=== PATIENT | female | born 1970 | race Caucasian/White ===

== ENCOUNTER → 2017-09-30 13:39 | Outpatient (CLI) | payer BC, SELFPAY ==
[2017-09-30 15:56] LABS: Thyroid Stimulating Hormone 0.73 uIU/ml (0.358-3.740)
[2017-10-01 12:16] LABS: Folate 11.2 ng/mL (>3.0); Prolactin 5.4 ng/mL (4.8-23.3); Vitamin B12 594 pg/mL (232-1245)
== END ==
PROVIDERS: PCP Emergency Medicine; Visit Provider Specialist
DX: D49.7 Neoplasm of unspecified behavior of endocrine glands and other parts of nervous system (principal); R20.9 Unspecified disturbances of skin sensation; R20.2 Paresthesia of skin
CPT/HCPCS: 36415; 82607; 82746; 84146; 84443

== ENCOUNTER → 2018-09-03 18:07 | Outpatient (CLI) | payer BC, SELFPAY ==
[2018-09-03 19:00] LABS: Amphetamine/Metha Screen,Urine Negative ng/mL (<1000); Barbiturates Screen,Urine Negative ng/mL (<200); Benzodiazepines Screen,Urine Positive ng/mL (<200); Cannabinoid Screen,Urine Negative ng/mL (<50); Cocaine Screen,Urine Negative ng/mL (<300); Methadone Screen,Urine Negative ng/mL (<300); Opiate Screen,Urine Positive ng/mL (<300); Phencyclidine Screen,Urine Negative ng/mL (<25)
== END ==
PROVIDERS: Visit Provider Nurse Practitioner Family
DX: Z79.899 Other long term (current) drug therapy (principal)
CPT/HCPCS: 80305

== ENCOUNTER 2018-10-13 11:00 | Outpatient (RCR) | payer BC, SELFPAY | END 2018-10-13 11:05 | disposition home or self-care (01) | LOC: PT 11:00 | PROVIDERS: Family Provider Emergency Medicine; PCP Emergency Medicine; Visit Provider Orthopaedic Surgery Adult Reconstructive Orthopaedic Surgery | DX: Z96.612 Presence of left artificial shoulder joint (principal) | CPT/HCPCS: 97010; 97014; 97016; 97033; 97035; 97110; 97140; 97163; 97164; G0283 ==

== ENCOUNTER → 2018-11-29 14:01 | Outpatient (CLI) | payer BC, SELFPAY ==
--- NOTE | 2018-11-29 14:19 | MR_ITS ---
MR shoulder LT wo con Ordering Physician: Mike Terrell Patient Age: 48 years: Female HISTORY: ITS.REASON: LEFT SHOULDER PAIN Surgery in June for labral tear still having pain clicking and shoulder weakness and pain with raising arm. Symptoms 2 months. TECHNIQUE: Multiplanar multisequence imaging on 1.5 [facility]. COMPARISON :No previous MR or plain films of the left shoulder available. FINDINGS Supraspinatus tendon: increased signal at critical zone reflects moderate supraspinatus tendinopathy. . Difficult to exclude a minor undersurface partial tear a towards anterior aspect of the supraspinatus. However I do not see any tendon retraction or definitive full-thickness tear.. Also Difficult to totally exclude tiny tiny pinhole tear here anteriorly technique with noting scant fluid at subdeltoid subacromial bursa..- The latter could also be seen with bursitis .. Subscapularis tendon is intact.. Infraspinatus tendon intact. Muscles of the rotator cuff well maintained well-developed. The biceps tendon appears intact up to the level of the superior aspect of bicipital groove, but but it is poorly seen as it it courses over the humeral head. .. Glenoid labrum question & Suspect we may be viewing some postsurgical changes at the superior anterior labrum accounting for subtle irregularities in this region. (As suggested on coronal image 11, axial 9) Also note linear fluid appearing which appears to undercutting superior anterior labrum coronal image 12. . Although fibrocartilage signal can occur here this area is particularly bright on STIR image set suggesting fluid/edema rather than merely fibrocartilage . Comparison to prior studies be very helpful to evaluate for interval change or character of the labrum... Details of prior procedure would be helpful to correlate as well. More inferiorly the the anterior labrum has a slightly blunted appearance. Is also slight additional painting appearing appearance of tissue questioned overlying the anterior/inferior labrum..-axial image 15, 16. Nonspecific. The glenohumeral joint relationships otherwise appears satisfactory with upper normal fluid at the shoulder joint. AC joint. Increased fluid & signal at the AC joint, with mild-AC joint arthropathy. Acromion. Neutral acromion with Adequate subacromial space measuring roughly 8mm.. -------IMPRESSION 1. Supraspinatus Tendinopathy. ... Increased signal critical zone supraspinatus tendon.,. This increased signal most evident towards its anterior margin, where suspect small undersurface tear .... No tendon retraction nor definitive full-thickness supraspinatus tear.... However suggestion scant, barely evident trace fluid at the subdeltoid subacromial bursa noted.-Barely evident but could reflect a small tiny pinhole Tear here anterior supraspinatus tendon, vs a mild bursitis. 2.. Subtle signal irregularities at the anterior superior labrum may reflect postsurgical changes. Minimal signal/fluid signal signal undercutting superior labrum noted.. Findings require clinical correlation. Comparison to prior studies May be helpful. Note comments in text. 3. Biceps tendon is poorly seen, & poorly delineated as it crosses over the humeral head . clinical correlation required here. 4. Minimal Fluid at AC joint likely reflecting mild AC joint arthropathy
== END ==
PROVIDERS: PCP Emergency Medicine; Visit Provider Orthopaedic Surgery Adult Reconstructive Orthopaedic Surgery
DX: M25.512 Pain in left shoulder (principal)
CPT/HCPCS: 73221

== ENCOUNTER → 2019-08-16 08:54 | Outpatient (CLI) | payer BC, SELFPAY ==
--- NOTE | 2019-08-16 08:58 | FL_ITS ---
PROCEDURE: FL BARIUM ENEMA CLINICAL INDICATION: 3 mo fu Tortuous colon, history of polyps COMPARISON: No exams were available for comparison FINDINGS: Fluoroscopy time: 2 minutes and 55 seconds. 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 The colon is visualized from rectum to cecum including filling of the appendix. There is a mild amount of residual secretions or fecal material within the cecum. It was difficult to get cecum adequately distended due to patient's discomfort. No obvious lesions evident within the cecum. No annular constricting lesion or fixed polypoid filling defects or evident. IMPRESSION: There was a mild amount of residual secretions or feces within the cecum which precludes a diagnosis of small polyps otherwise negative air-contrast barium Dictated by: Tahir Kearney MD 08/19/2019 14:18 Electronically signed by Tahir Kearney MD in [place] 08/19/2019 14:18
== END ==
PROVIDERS: PCP Emergency Medicine; Visit Provider Surgery
DX: Q43.8 Other specified congenital malformations of intestine (principal)
CPT/HCPCS: 74270

== ENCOUNTER → 2019-09-09 15:45 | Outpatient (CLI) | payer BC, SELFPAY ==
--- NOTE | 2019-09-09 15:45 | MM_ITS ---
PROCEDURE: MM DIG SCREENING MAMM BI W/CAD CLINICAL INDICATION: screening There is a history of breast cancer patient's paternal grandmother. COMPARISON: DMSB DIG MAMM-SCREEN BRANDON from 08/30/2015 DMDXUWAL DIG MAMM-DX UNI LT W ADD VIEW from 01/02/2016 TECHNIQUE: Standard CC and MLO images were obtained. R2 CAD reviewed. FINDINGS: Scattered fibroglandular densities are seen throughout each breast. There is a mole marker left breast. There are couple of benign-appearing microcalcifications in each breast. There is a small nodular density just deep to the nipple right breast 12 o'clock position. There is a similar nodular density deep to the nipple left breast approximately 3 o'clock position. Neither of these densities were definitely seen on the previous mammograms. There are no suspicious microcalcifications. Recommend the patient return for spot compression imaging of both lesions, ultrasound may be necessary as well IMPRESSION: Fibrofatty parenchyma with possible new densities in each breast BI-RAD Category: 0 Need Additional Imaging Evaluation FOLLOW-UP: IMM Immediate Follow-up Recommended (A letter has been sent to the patient regarding results of the study.) Dictated by: Dr. Umberto Zuluaga MD 09/14/2019 14:[address] Umberto Zuluaga MD in [place] 09/14/2019 14:33
== END ==
PROVIDERS: PCP Emergency Medicine; Visit Provider Emergency Medicine
DX: Z12.39 Encounter for other screening for malignant neoplasm of breast (principal)
CPT/HCPCS: 77067

== ENCOUNTER → 2019-10-21 10:47 | Outpatient (CLI) | payer BC, SELFPAY ==
--- NOTE | 2019-10-21 13:05 | US_ITS ---
PROCEDURE: US BREAST LT COMPLETE CLINICAL INDICATION: breast nodule bilat COMPARISON: US BREAST RT COMPLETE from 10/21/2019 FINDINGS: There is a small hypoechoic nodule with well-defined borders 2 o'clock position outer breast measuring 0.8 x 0.4 by 0.9 cm and this likely represents a small fibroadenoma. There is a similar hypoechoic slightly lobulated lesion 12 o'clock position near the nipple measuring 0.8 by 0.6 x 0.4 cm in this likely represents a fibroadenoma as well. There are normal appearing nodes in the axilla. IMPRESSION: Probable small fibroadenomas as described with no additional evaluation indicated and recommended patient continue yearly screening mammography Dictated by: Dr. Umberto Zuluaga MD 10/28/2019 09:[address] Umberto Zuluaga MD in [place] 10/28/2019 09:43
--- NOTE | 2019-10-21 13:05 | US_ITS ---
PROCEDURE: US BREAST RT COMPLETE CLINICAL INDICATION: breast nodule bilat COMPARISON: BL US BREAST-LT COMPLETE W/AXILLA from 01/02/2016 FINDINGS: There are 2 hypoechoic cystic lesions 6 o'clock position near the largest measuring 0.5 by 0.5 x 0.4 cm. The other cystic-appearing lesion measures 0.5 by 0.4 x 0.2 cm. There are 2 normal appearing nodes in the axilla.. IMPRESSION: Small cystic-appearing lesions as described, recommend the patient continue with yearly screening mammography Dictated by: Dr. Umberto Zuluaga MD 10/28/2019 09:[address] Umberto Zuluaga MD in [place] 10/28/2019 09:46
--- NOTE | 2019-10-21 13:05 | MM_ITS ---
PROCEDURE: MM DIG MAMM BI DX W/CAD CLINICAL INDICATION: breast nodule bilat COMPARISON: DMSB DIG MAMM-SCREEN BRANDON from 08/30/2015 DMDXUWAL DIG MAMM-DX UNI LT W ADD VIEW from 01/02/2016 MM DIG SCREENING MAMM BI W/CAD from 09/09/2019 US BREAST RT COMPLETE from 10/21/2019 US BREAST LT COMPLETE from 10/21/2019 TECHNIQUE: Standard CC and MLO images and 3D Tomosynthesis was obtained. R2 CAD reviewed. FINDINGS: Scattered fibroglandular densities are seen in both breast. Keily images are most helpful and there is no suspicious lesions seen in the subareolar region of either breast. Ultrasound of each breast showed small cystic lesions in the subareolar region of each breast with no suspicious characteristics. There are no suspicious microcalcifications. IMPRESSION: Additional views of each breast with keily images confirming no suspicious abnormality in either breast BI-RAD Category: 1 Negative FOLLOW-UP: 1YR 1 Year Follow-up (A letter has been sent to the patient regarding results of the study.) Dictated by: Dr. Umberto Zuluaga MD 10/28/2019 09:[address] Umberto Zuluaga MD in [place] 10/28/2019 09:40
== END ==
PROVIDERS: PCP Emergency Medicine; Visit Provider Physician Assistant
DX: N63.23 Unspecified lump in the left breast, lower outer quadrant (principal)
CPT/HCPCS: 76641; 77062; 77066; G0279

== ENCOUNTER 2019-12-26 14:09 | Emergency (ER) | payer OTHER, BC, SELFPAY ==
[2019-12-26 14:15] VITALS: BP 163/103; PULSE 86; RESP 18; TEMP 36.8; O2SAT 100; BMI 29.0
--- NOTE | 2019-12-26 14:21 | XR_ITS ---
PROCEDURE: XR CHEST PORTABLE CLINICAL HISTORY: cough/respiratory symptoms COMPARISON: CXR2V XR chest 2V from 03/29/2018 [id number] XR ribs LT min 3V w CXR1V from 03/29/2018 FINDINGS: The cardiomediastinal silhouette and pulmonary vascularity are within normal limits. The lungs are clear without infiltrates, suspicious nodules, or pleural effusions. Mild lower thoracic curvature convex right and lumbar curvature convex left IMPRESSION: No acute findings. Dictated by: Tahir Kearney MD 12/26/2019 14:37 Electronically signed by Tahir Kearney MD in [place] 12/26/2019 14:37
--- NOTE | 2019-12-26 14:28 | HMH.COUGH ---
Cough Clinic HPI - History of Present Illness Complaint:: 49-year-old white female who over the past week has had scratchy throat, dry cough and fevers to 102 degrees. She is had some body aches and has felt wiped out. Some indirect contacts at work have been under self quarantine for coronavirus exposure but she is not been around anyone who is actually been diagnosed with the disease. 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 She reports that her cough is mostly dry, throat is scratchy but not significantly painful. Has noticed a small swelling in her right upper chest wall area but no cervical lymphadenitis. No GI symptoms. Mild ear pain. Has overall muscle aches but no specific single joints hurt. Onset (ago): day(s) Severity: severe Severity scale (1-10): 5 Home Medications: Home Medications Medication Instructions Recorded Confirmed Type acetaminophen 300 mg-codeine 30 mg 1 tab PO TID #90 tab 10/14/19 Rx tablet diazepam 5 mg tablet 5 mg PO DAILY PRN #30 tab 10/14/19 Rx Esomeprazole Magnesium [Nexium 40 mg PO DAILY 12/26/19 History 24HR] lisinopriL [Prinivil 10mg Tablet] See Rx Instructions .ROUTE .COMPLEX 12/26/19 History Allergies/Adverse Reactions: Allergies Allergy/AdvReac Type Severity Reaction Status Date / Time No Known Allergies Allergy Verified 12/26/19 14:13 Cough Clinic Triage - Symptoms Fever History: Yes Chills: Yes Myalgia: Yes Nasal Drainage: No Sore Throat: Yes Productive Cough: No Non-productive Cough: Yes Ear or Sinus Pain: Yes Joint Pain: Yes Chest Pain: Yes Rash: Yes (l abd/r shoulder) Shortness of Breath: No Nausea or Vomitting: No Headache: Yes Abdominal Pain: No Diarrhea: No - Exposure History Foreign Travel: No Direct Contact with COVID-19 Patient: No - Risk Factors Greater than 60 Years Old: No COPD: No Diabetes: No Heart Disease: Yes (htn) Home Oxygen Use: No Chronic Renal Disease: No Chronic Liver Disease: No Neurologic/Neurodevelopmental/intellectual disability: No Other Chronic Diseases: No If Female, currently : No Current Smoker: Yes (1 ppd) Former Smoker: No Cough Clinic History I have reviewed the patient's past medical history: Yes Medical History: Reports:: Anxiety, Gastroesophageal Reflux Disease(GERD), Hypertension, MRSA Denies:: Cancer, Diabetes Mellitus Type 1, Diabetes Mellitus Type 2, Internal Pacemaker, Lung Disease, Seizures Other Medical History: Reports: Arthritis Comment: obesity Laterality Cases: Left: Arthroscopy Shoulder, Right: Arthroscopy Knee, Bilateral: Tonsillectomy Other Surgeries: Yes: Colonoscopy, EGD, Hernia Repair, Hysterectomy-Partial, Tubal Ligation. No: Pacemaker Amputation: No Fractures: No Comment: excision lesions, rt knee sx, wisdom teeth - Social History Smoking Status: Current every day smoker Tobacco Type: cigarettes # Packs/Day (cigarettes): 1 #Yrs smoked (if former smoker): 26 Alcohol Intake: never Alcohol Intake Frequency:: holidays/special occasions only Substance Use Type: denies use Occupational Status: previously employed Housing: house Household Members: spouse - Psychiatric History Pschychiatric History:: Reports:: Anxiety Family Hx:: No significant family history ROS Obtained: Yes All systems reviewed & no additional complaints Cough Clinic Exam - General General appearance: alert, in no apparent distress - Head Head exam: atraumatic, normocephalic, normal inspection - Eye Eye exam: Present: normal appearance, PERRL, EOMI - ENT ENT exam: Present: normal exam, normal oropharynx, mucous membranes moist, TM's normal bilaterally, normal external ear exam - Neck Neck exam: Present: normal inspection, full ROM, trachea midline. Absent: meningismus, lymphadenopathy - Chest Chest inspection: Present: normal inspection, symmetric chest wall rise. Absent: tenderness - Respiratory Respira
[2019-12-26 14:36] LABS: Hematocrit 41.7 % (37.0-47.0); Hemoglobin 14.9 g/dL (12.2-16.2); Mean Corpuscular HGB Conc 35.7 g/dL (31.8-35.4); Mean Corpuscular Volume 92.5 fl (81-99); Platelet Count 445 K/mm3 (142-424); Red Blood Count 4.51 M/mm3 (4.20-5.40); Red Cell Distribution Width 13.3 % (11.5-17.5)
[2019-12-26 14:37] LABS: Mean Platelet Volume 7.4 fl (7.4-10.4)
[2019-12-26 14:38] LABS: Basophils # 0.1 K/mm3 (0-0.2); Basophils % 0.9 % (0.1-2.0); Eosinophils # 0.1 K/mm3 (0.0-0.4); Eosinophils % 0.9 % (0.1-12.0); Lymphocytes # 3.3 K/mm3 (0.7-4.5); Lymphocytes % 32.6 % (10-50); Monocytes # 0.6 K/mm3 (0.1-1.0); Neutrophils % 59.6 % (37.0-80.0)
[2019-12-26 14:53] LABS: Adenovirus,PCR Not Detected (NotDetected); Bordetella Pertussis Not Detected (NotDetected); Chlamydophila Pneumoniae, PCR Not Detected (NotDetected); Coronavirus 229E Not Detected (NotDetected); Coronavirus NL63 Not Detected (NotDetected); Coronavirus OC43 Not Detected (NotDetected); Coronovirus HKU1,PCR Not Detected (NotDetected); Human Metapneumovirus Not Detected (NotDetected); Influenza A, PCR Not Detected (NotDetected); Influenza AH1, 2009 Not Detected (NotDetected); Influenza AH1, PCR Not Detected (NotDetected); Influenza AH3,PCR Not Detected (NotDetected); Influenza B, PCR Not Detected (NotDetected); Mycoplasma Pneumoniae, PCR Not Detected (NotDetected); Parainfluenza 1, PCR Not Detected (NotDetected); Parainfluenza 2, PCR Not Detected (NotDetected); Parainfluenza 3, PCR Not Detected (NotDetected); Parainfluenza 4, PCR Not Detected (NotDetected); Respiratory Syncytial Virus Not Detected (NotDetected); Rhinovirus/Enterovirus Not Detected (NotDetected)
[2019-12-26 15:05] VITALS: BP 163/103; PULSE 86; RESP 18; TEMP 36.8; O2SAT 100
[2019-12-27 09:04] LABS: Covid-19 Nasal PCR Sendout Lex NOT DETECTED
--- NOTE | 2019-12-27 09:19 | PC.NURSE ---
NOTIFED DR. HUERTA OF NEGATIVE COVID TEST. NOTIFIED PATIENT OF NEGATIVE COVID TESTING. WILL FAX RESULTS TO [facility].
== END 2019-12-26 14:55 | disposition home or self-care (01) ==
PROVIDERS: Emergency Provider Internal Medicine Adolescent Medicine; PCP Emergency Medicine
DX: J06.9 Acute upper respiratory infection, unspecified (principal); R21 Rash and other nonspecific skin eruption; F41.9 Anxiety disorder, unspecified; K21.9 Gastro-esophageal reflux disease without esophagitis; I10 Essential (primary) hypertension; F17.210 Nicotine dependence, cigarettes, uncomplicated
CPT/HCPCS: 36415; 71045; 85025; 87275; 87276; 87486; 87581; 87633; 87798; 99201; 99213

== ENCOUNTER 2020-04-09 13:34 | Emergency (ER) | payer OTHER, BC, SELFPAY ==
[2020-04-09 13:54] VITALS: BP 132/81; PULSE 91; RESP 20; TEMP 37.3; O2SAT 98; BMI 28.1
[2020-04-09 14:07] VITALS: BP 132/81; PULSE 91; RESP 20; TEMP 37.3; O2SAT 98
--- NOTE | 2020-04-09 14:16 | HMH.EDUTC ---
[facility] [place] Disposition Clinical Impression: Upper respiratory infection, viral, COVID-19 virus test result unknown Disposition: Home, Self-Care Condition on Discharge: Good Instructions: DI for Viral Upper Respiratory Infection -- Adult Additional Instructions: Laboratory like I do not understand all the no sign of a bacterial infection. Likely viral. Viruses can take 7-14 days to run their course. Nasal saline and bulb syringe or nose [place] to remove nasal drainage to help with nasal congestion. Hard to eat, drink, sleep with nasal congestion so important to keep this cleaned out. Monitor temp. Tylenol or Motrin as needed for pain or fever Encourage fluids, water, Gatorade, Powerade, Pedialyte if infant/toddler/child Warm salt water gargles Warm fluids Sore throat lozenges Sleep elevated Humidifier/vaporizer Your throat swab was sent for culture. These results are typically sent to the primary care. Be sure you follow-up in 2-3 days if no improvement so we can review the results and treat if necessary if you do not have a primary care, I recommend to get 1 but in the meantime, call for results. Follow-up immediately for new or worsening symptoms or no noticeable improvement over the next 48-72 hours. self isolate until test results are back. no work until test results are neg Referrals: Jose Wells MD [Primary Care Provider] - Forms: Work/School Release Time of Disposition: 14:28 Medical Decision Making - Tristan Inquiry Pt receiving controlled substance: No Vital Signs: 04/09/20 13:54 04/09/20 14:07 Temperature 99.2 F 99.2 F Temperature Source Oral Oral Pulse Rate 91 H Pulse Rate [Left] 91 H Respiratory Rate 20 20 Blood Pressure 132/81 Blood Pressure [Right Arm] 132/81 Blood Pressure Mean [Right Arm] 98 Blood Pressure Source [Right Arm] Automatic Cuff Blood Pressure Position [Right Arm] Sitting 02 Sat by Pulse Oximetry 98 Oxygen Delivery Method Room Air Room Air Orders (Tests/Meds): ORDERS Category Date Time Status SARS-CoV-2, JAYLYN Stat Lab 04/09/20 14:02 Ordered [facility] [place] HPI - General Chief complaint: Urgent Treatment Center Stated complaint: fever tired sore throat cough Time Seen by Provider: 04/09/20 14:16 Mode of Arrival: Ambulatory Source of Information: Patient Limitations: No Limitations Description of Symptoms (Recalled from Triage Doc. by RN): Itchy throat, cough, fatigue, high fever HEENT Symptoms (Recalled from RN notes): Yes Resp Symptoms (Recalled from RN notes): Yes Skin Symptoms (Recalled from RN notes): No MS Symptoms (Recalled from RN notes): Yes Functional Status (Recalled from RN notes): stable - History of Present Illness Provider Complaint: 49-year-old female presents for sore throat, fever, body aches, clear nasal drainage, coughing, and increased in feeling short of breath. 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 Patient states other employees do not wear mask. - Related Data Home Medications Medication Instructions Recorded Confirmed Esomeprazole Magnesium [Nexium 40 mg PO DAILY 12/26/19 12/29/19 24HR] Previous Rx's Medication Instructions Recorded selenium sulfide 2.25 % shampoo 1 applic TOPICAL DAILY 7 Days #180 12/29/19 ml lisinopril 10 mg tablet See Rx Instructions .ROUTE 01/11/20 .COMPLEX #90 tab acetaminophen 300 mg-codeine 30 mg 1 tab PO TID #75 tab 04/06/20 tablet diazepam 5 mg tablet 5 mg PO DAILY PRN #25 tab 04/06/20 Allergies Allergy/AdvReac Type Severity Reaction Status Date / Time No Known Allergies Allergy Verified 04/09/20 14:03 - Worker's Comp Is this a Worker's Comp case?: No Is this an [facility] Worker's Comp?: No Is this a Mega Worker's Comp?: No [facility] History - Hepatitis A Screen Drug use history?: No High risk sexual behaviors?: No History of sexually transmitted in
[2020-04-09 19:14] LABS: UTC Influenza A Antigen Negative (Negative)
[2020-04-09 19:14] LABS: UTC Strep Screen (Rapid) Negative (Negative)
[2020-04-09 19:16] LABS: UTC Influenza B Antigen Negative (Negative)
[2020-04-11 15:51] LABS: Covid-19 Nasal PCR Sendout Lex Not Detected
== END 2020-04-09 14:41 | disposition home or self-care (01) ==
PROVIDERS: Emergency Provider Nurse Practitioner Family; PCP Emergency Medicine
DX: J06.9 Acute upper respiratory infection, unspecified (principal); Z03.818 Encounter for observation for suspected exposure to other biological agents ruled out; I10 Essential (primary) hypertension; F41.9 Anxiety disorder, unspecified; K21.9 Gastro-esophageal reflux disease without esophagitis; F17.210 Nicotine dependence, cigarettes, uncomplicated
CPT/HCPCS: 87804; 87880; 99201; 99202; U0004

== ENCOUNTER → 2020-06-07 15:41 | Outpatient (CLI) | payer OTHER, BC, SELFPAY ==
[2020-06-07 16:09] LABS: Basophils # 0.1 K/mm3 (0-0.2); Eosinophils # 0.2 K/mm3 (0.0-0.4); Eosinophils % 2.4 % (0.1-12.0); Hematocrit 44.7 % (37.0-47.0); Hemoglobin 14.3 g/dL (12.2-16.2); Lymphocytes # 2.3 K/mm3 (0.7-4.5); Lymphocytes % 27.5 % (10-50); Mean Corpuscular HGB Conc 31.9 g/dL (31.8-35.4); Mean Corpuscular Hemoglobin 30.3 pg (27.0-31.2); Mean Corpuscular Volume 94.9 fl (81-99); Mean Platelet Volume 8.7 fl (7.4-10.4); Monocytes # 0.5 K/mm3 (0.1-1.0); Monocytes % 5.8 % (1.7-9.3); Neutrophils # 5.3 K/mm3 (1.8-7.8); Neutrophils % 63.3 % (37.0-80.0); Platelet Count 380 K/mm3 (142-424); Red Blood Count 4.71 M/mm3 (4.20-5.40); White Blood Count 8.4 K/mm3 (4.8-10.8)
[2020-06-07 16:51] LABS: Chloride 105 mmol/L (98-107); Potassium 5.4 mmoL/L (3.5-5.1); Sodium 140 mmol/L (136-145)
[2020-06-07 16:53] LABS: Blood Urea Nitrogen 13 mg/dl (7-17); Estimated Glomerular Filt Rate 67 ml/min (>60); GFR (African American) 81 ML/MIN (>60)
[2020-06-07 16:54] LABS: Alanine Aminotransferase 29 U/L (12-78); Albumin Level 4.5 g/dl (3.5-5.0); Albumin/Globulin Ratio 1.6 (1.1-1.8); Alkaline Phosphatase 67 U/L (38-126); Anion Gap 14.4 mEq/L (5-15); Aspartate Amino Transferase 37 U/L (14-36); Bilirubin,Total 0.6 mg/dl (0.2-1.3); Calcium 10.6 mg/dl (8.4-10.2); Carbon Dioxide 26 mmol/L (22.0-30.0); Cholesterol 205 mg/dl (140-200); Globulin 2.9 g/dL (1.3-3.2); Glucose 114 mg/dl (74-100); HDL Cholesterol 51 mg/dl (40-60); Total Protein,Serum 7.4 g/dl (6.3-8.2); Triglycerides 150 mg/dl (30-150); VLDL Cholesterol 30 mg/dL (0-40)
[2020-06-07 17:12] LABS: Direct LDL Cholesterol 140.56 mg/dL (100-129)
[2020-06-07 17:18] LABS: T4 (Thyroxine) 7.2 ug/dl (5.53-11.0)
[2020-06-07 17:29] LABS: Thyroid Stimulating Hormone 0.65 uIU/mL (0.465-4.68)
== END ==
PROVIDERS: Visit Provider Physician Assistant
DX: I10 Essential (primary) hypertension (principal); Z79.899 Other long term (current) drug therapy
CPT/HCPCS: 80053; 80061; 84436; 84443; 85025

== ENCOUNTER → 2020-06-19 15:55 | Outpatient (CLI) | payer OTHER, BC, SELFPAY ==
[2020-06-19 19:04] LABS: Chloride 103 mmol/L (98-107); Potassium 4.4 mmoL/L (3.5-5.1); Sodium 139 mmol/L (136-145)
[2020-06-19 19:07] LABS: Anion Gap 11.4 mEq/L (5-15); Blood Urea Nitrogen 9 mg/dl (7-17); Carbon Dioxide 29 mmol/L (22.0-30.0); Estimated Glomerular Filt Rate 67 ml/min (>60); GFR (African American) 81 ML/MIN (>60); Glucose 87 mg/dl (74-100)
== END ==
PROVIDERS: Visit Provider Physician Assistant
DX: E87.5 Hyperkalemia (principal)
CPT/HCPCS: 36415; 80048

== ENCOUNTER 2020-10-09 19:27 | Emergency (ER) | payer OTHER, BC, SELFPAY ==
[2020-10-09 19:40] VITALS: BP 135/83; PULSE 83; RESP 14; TEMP 36.9; O2SAT 99; BMI 28.1
--- NOTE | 2020-10-09 20:27 | HMH.EDUTC ---
[facility] [place] Disposition Clinical Impression: Viral syndrome, Exposure to COVID-19 virus Disposition: Home, Self-Care Condition on Discharge: Good Instructions: DI for COVID-19 (Suspected or Confirmed ), Preventing the Spread of Coronavirus Discharge Instructions Additional Instructions: Drink plenty of fluids. Take tylenol or ibuprofen for pain or fever. Take the medications as directed. Follow up with your regular doctor. GO TO THE ER FOR ANY WORSENING SYMPTOMS Prescriptions: Ondansetron [Zofran 4mg ODT] 4 mg PO Q8HP PRN #12 tab.rapdis PRN Reason: Nausea Transmission Status: Received by [id number] Azithromycin [Z-Gwyn 250mg Tab*] 250 mg PO UD DOSE PK #6 tab Transmission Status: Received by [id number] Referrals: Jose Wells MD [Primary Care Provider] - Time of Disposition: 20:30 Medical Decision Making - Medical Records Medical records reviewed: No: I reviewed the patient's medical records. - Tristan Inquiry Pt receiving controlled substance: No Vital Signs: 10/09/20 19:40 10/09/20 20:38 Temperature 98.5 F 98.5 F Temperature Source Oral Pulse Rate 83 Pulse Rate [Right Brachial] 83 Respiratory Rate 14 14 Blood Pressure 135/83 Blood Pressure [Right Arm] 135/83 Blood Pressure Mean [Right Arm] 100 Blood Pressure Source [Right Arm] Automatic Cuff Blood Pressure Position [Right Arm] Sitting 02 Sat by Pulse Oximetry 99 Oxygen Delivery Method Room Air Orders (Tests/Meds): ORDERS Category Date Time Status Covid-19 Nasal PCR Sendout P&C Routine Lab 10/09/20 19:45 Received [facility] [place] HPI - General Stated complaint: COVID TEST Time Seen by Provider: 10/09/20 20:28 Mode of Arrival: Ambulatory Source of Information: Patient Limitations: No Limitations Description of Symptoms (Recalled from Triage Doc. by RN): COVID TEST D/T EXPOSURE. C/O HEADACHE AND SORE THROAT HEENT Symptoms (Recalled from RN notes): Yes Resp Symptoms (Recalled from RN notes): No Skin Symptoms (Recalled from RN notes): No MS Symptoms (Recalled from RN notes): No Functional Status (Recalled from RN notes): WNL - History of Present Illness Provider Complaint: She is here requesting a covid-19 test. - Related Data Home Medications Medication Instructions Recorded Confirmed Esomeprazole Magnesium [Nexium 40 mg PO DAILY 12/26/19 09/24/20 24HR] Previous Rx's Medication Instructions Recorded acetaminophen 300 mg-codeine 30 mg 1 tab PO QID #120 tab 07/25/20 tablet cyclobenzaprine 10 mg tablet 10 mg PO TID PRN #30 tab 07/25/20 diazepam 5 mg tablet 5 mg PO DAILY PRN #30 tab 07/25/20 lisinopril 10 mg tablet See Rx Instructions .ROUTE 08/20/20 .COMPLEX #90 tab phentermine 37.5 mg capsule 37.5 mg PO DAILY #30 cap 08/20/20 Azithromycin [Z-Gwyn 250mg Tab*] 250 mg PO UD DOSE PK #6 tab 10/09/20 Ondansetron [Zofran 4mg ODT] 4 mg PO Q8HP PRN #12 tab.rapdis 10/09/20 Allergies Allergy/AdvReac Type Severity Reaction Status Date / Time No Known Allergies Allergy Verified 09/24/20 16:01 - Worker's Comp Is this a Worker's Comp case?: No [facility] History - Hepatitis A Screen Drug use history?: No High risk sexual behaviors?: No History of sexually transmitted infection?: No Currently employed?: No Childcare worker?: No Do you have indoor plumbing?: Yes Do you have electricity?: Yes Attestation statement:: This patient has been screened for Hepatitis A risk factors. I have reviewed the patient's past medical history: Yes Medical History: Reports:: Anxiety, Gastroesophageal Reflux Disease(GERD), Hypertension Denies:: Cancer, Diabetes Mellitus Type 1, Diabetes Mellitus Type 2, Internal Pacemaker, Lung Disease, MRSA, Seizures Other Medical History: Reports: Arthritis Comment: obesity Laterality Cases: Left: Arthroscopy Shoulder, Right: Arthroscopy Knee, Bilateral: Tonsillectomy Other Surgeries: Yes: Colonoscopy, EGD, Hernia Repair, Hysterectomy-Partial, Tubal Ligation
[2020-10-09 20:38] VITALS: BP 135/83; PULSE 83; RESP 14; TEMP 36.9; O2SAT 99
[2020-10-11 08:17] LABS: Covid-19 Nasal PCR Sendout P&C Negative
== END 2020-10-09 20:40 | disposition home or self-care (01) ==
PROVIDERS: Emergency Provider Nurse Practitioner Family; PCP Emergency Medicine
DX: Z20.822 Contact with and (suspected) exposure to COVID-19 (principal); B34.9 Viral infection, unspecified; K21.9 Gastro-esophageal reflux disease without esophagitis; F41.9 Anxiety disorder, unspecified; I10 Essential (primary) hypertension; Z79.899 Other long term (current) drug therapy
CPT/HCPCS: 99202; G0463; U0004

== ENCOUNTER → 2020-11-09 10:16 | Outpatient (CLI) | payer OTHER, BC, SELFPAY ==
--- NOTE | 2020-11-09 10:24 | MR_ITS ---
PROCEDURE: MR LUMBAR SPINE WO CON CLINICAL INDICATION: back pain Chronic low back pain COMPARISON: CT LSWO CT LUMBAR SPINE W/O CONTRAST from 08/30/2015 TECHNIQUE: Standard multiplanar multiecho sequences are performed without contrast. 3-D MIP and myelographic images are also rendered and reviewed FINDINGS: There is normal alignment. The spinal cord ends at the L1 level. L1-L2: Unremarkable. L2-L3: Unremarkable. L3-L4: Minimal bulging disc with mild facet and ligamentum hypertrophy L4-5: Minimal anterolisthesis of L4 of 2-3 mm. Mild facet ligamentum hypertrophy with mild bilateral lateral recess and foraminal narrowing. L5-S1: Degenerative disc disease with facet and ligamentum hypertrophy. There is mild bilateral foraminal narrowing which is slightly greater on the right due to the facet hypertrophic change. IMPRESSION: Lumbar spondylosis with degenerative changes as described above. No disc herniation or canal stenosis. Please see above for detailed description at each level. Dictated by: Tahir Kearney MD 11/10/2020 16:03 Tahir Kearney MD in [place] 11/10/2020 16:03
== END ==
PROVIDERS: PCP Emergency Medicine; Visit Provider Emergency Medicine
DX: M54.5 Low back pain (principal)
CPT/HCPCS: 72148; 76376

== ENCOUNTER → 2021-03-13 18:02 | Outpatient (CLI) | payer OTHER, BC, SELFPAY ==
[2021-03-13 19:48] LABS: Amphetamine/Metha Screen,Urine Negative ng/ml (<1000)
[2021-03-13 19:49] LABS: Barbiturates Screen,Urine Negative ng/ml (<200)
[2021-03-13 19:50] LABS: Benzodiazepines Screen,Urine Positive ng/ml (<200); Cannabinoid Screen,Urine Negative ng/ml (<50)
[2021-03-13 19:51] LABS: Cocaine Screen,Urine Negative ng/ml (<300)
[2021-03-13 19:52] LABS: Methadone Screen,Urine Negative ng/ml (<300)
[2021-03-13 19:54] LABS: Opiate Screen,Urine Positive ng/ml (<300); Phencyclidine Screen,Urine Negative ng/ml (<25)
== END ==
PROVIDERS: Visit Provider Emergency Medicine
DX: M54.5 Low back pain (principal); Z51.81 Encounter for therapeutic drug level monitoring; Z79.891 Long term (current) use of opiate analgesic
CPT/HCPCS: 80305

== ENCOUNTER → 2021-03-27 10:36 | Outpatient (CLI) | payer OTHER, BC, SELFPAY ==
--- NOTE | 2021-03-27 10:36 | MM_ITS ---
PROCEDURE: MM DIG SCREENING MAMM BI W/CAD Digital Breast Tomosynthesis Included CLINICAL INDICATION: screening COMPARISON: MG DMSB DIG MAMM-SCREEN BRANDON from 08/30/2015 MG DMDXUWAL DIG MAMM-DX UNI LT W ADD VIEW from 01/02/2016 MG MM DIG SCREENING MAMM BI W/CAD from 09/09/2019 MG MM DIG MAMM BI DX W/CAD from 10/21/2019 US US BREAST RT COMPLETE from 10/21/2019 TECHNIQUE: Standard CC and MLO images and 3D Tomosynthesis was obtained. R2 CAD reviewed. FINDINGS: Average fibroglandular tissue. There are scattered bilateral areas of asymmetry as previously described consistent with fibroglandular elements. Benign-appearing nodular densities noted in the upper outer right breast. A new nodular opacity is noted in the outer aspect of the right breast at 5 mm best seen on the tomographic images. This may be in the 8 and 9 o'clock position. Spot compression views and ultrasound suggested for further evaluation. Asymmetric densities also noted in the mid aspect of the right breast on the MLO view for which spot compression views are recommended. Asymmetry noted in the medial aspect of the right breast posterior 1/3. Recommend spot compression view. A stellate density is present in the medial aspect of the right breast which is stable and is felt to be due to overlapping fibroglandular tissue in vessels. The left breast has an unremarkable appearance. The IMPRESSION: Incomplete, additional evaluation suggested of the right breast regarding asymmetric densities and nodular densities. Recommend right-sided spot compression views, rolled CC views, straight mL view and right breast ultrasound BI-RAD Category: 0 Need Additional Imaging Evaluation FOLLOW-UP: IMM Immediate Follow-up Recommended (A letter has been sent to the patient regarding results of the study.) Dictated by: Tahir Kearney MD 03/28/2021 09:06 Tahir Kearney MD in [place] 03/28/2021 09:06
== END ==
PROVIDERS: PCP Emergency Medicine; Visit Provider Emergency Medicine
DX: Z12.31 Encounter for screening mammogram for malignant neoplasm of breast (principal)
CPT/HCPCS: 77063; 77067

== ENCOUNTER → 2021-04-17 15:03 | Outpatient (CLI) | payer OTHER, BC, SELFPAY ==
--- NOTE | 2021-04-17 15:03 | US_ITS ---
PROCEDURE: MM DIG MAMM DX UNILAT RT CAD Digital Breast Tomosynthesis Included Right breast ultrasound complete with axilla CLINICAL INDICATION: abn mamm Follow-up abnormal mammogram COMPARISON: MG MM DIG SCREENING MAMM BI W/CAD from 09/09/2019 MG MM DIG MAMM BI DX W/CAD from 10/21/2019 US US BREAST RT COMPLETE from 10/21/2019 MG MM DIG SCREENING MAMM BI W/CAD from 03/27/2021 US US BREAST RT COMPLETE from 04/17/2021 TECHNIQUE: Standard CC and MLO images and 3D Tomosynthesis was obtained. R2 CAD reviewed. FINDINGS: Average fibroglandular tissue. Asymmetric density medial aspect of the right breast is once again noted with decreased stellate appearance on the rolled views. Small nodular densities are present in the central and lateral right breast. Previously noted asymmetry in the medial aspect of the right breast is not apparent on today's exam. Right breast ultrasound: At 6 o'clock there is a 3 mm cyst. 3 mm cyst at 9 o'clock. At 10 o'clock near the nipple there is a complex area of echogenicity measuring 8 by 3 mm. Hypoechoic area noted at 10 o'clock 10 x 5 mm probably related the asymmetric fibroglandular tissue. IMPRESSION: Probably benign findings regarding right breast. Suggest 6 month mammographic and sonographic follow-up BI-RAD Category: 3 Probably Benign Finding Short Term Follow-Up FOLLOW-UP: 6M 6 Month Follow-up (A letter has been sent to the patient regarding results of the study.) Dictated by: Tahir Kearney MD 04/22/2021 14:42 Tahir Kearney MD in [place] 04/22/2021 14:42
== END ==
PROVIDERS: PCP Emergency Medicine; Visit Provider Physician Assistant
DX: R92.8 Other abnormal and inconclusive findings on diagnostic imaging of breast (principal)
CPT/HCPCS: 76641; 77061; 77065; G0279

== ENCOUNTER → 2021-05-07 10:27 | Outpatient (CLI) | payer OTHER, BC, SELFPAY ==
[2021-05-07 10:46] LABS: Basophils # 0.1 K/mm3 (0-0.2); Basophils % 1.5 % (0.1-2.0); Eosinophils # 0.2 K/mm3 (0.0-0.4); Eosinophils % 2.4 % (0.1-12.0); Lymphocytes # 3.2 K/mm3 (0.7-4.5); Lymphocytes % 35.9 % (10-50); Mean Corpuscular HGB Conc 32.6 g/dL (31.8-35.4); Mean Corpuscular Hemoglobin 31.3 pg (27.0-31.2); Mean Platelet Volume 7.6 fl (7.4-10.4); Monocytes # 0.4 K/mm3 (0.1-1.0); Monocytes % 4.9 % (1.7-9.3); Neutrophils # 4.9 K/mm3 (1.8-7.8); Neutrophils % 55.3 % (37.0-80.0); Platelet Count 440 K/mm3 (142-424); Red Blood Count 4.48 M/mm3 (4.20-5.40); Red Cell Distribution Width 13.5 % (11.5-17.5); White Blood Count 8.9 K/mm3 (4.8-10.8)
[2021-05-07 11:35] LABS: Chloride 106 mmol/L (98-107)
[2021-05-07 11:36] LABS: Potassium 4.6 mmoL/L (3.5-5.1); Sodium 141 mmol/L (136-145)
[2021-05-07 11:38] LABS: Alanine Aminotransferase 19 U/L (12-78); Alkaline Phosphatase 70 U/L (38-126); Anion Gap 13.6 mEq/L (5-15); Aspartate Amino Transferase 22 U/L (14-36); Bilirubin,Total 0.6 mg/dl (0.2-1.3); Blood Urea Nitrogen 11 mg/dl (7-17); Carbon Dioxide 26 mmol/L (22.0-30.0); Estimated Glomerular Filt Rate 67 ml/min (>60); GFR (African American) 81 ML/MIN (>60)
[2021-05-07 11:39] LABS: Albumin Level 4.4 g/dl (3.5-5.0); Albumin/Globulin Ratio 1.6 (1.1-1.8); Globulin 2.7 g/dL (1.3-3.2); Glucose 92 mg/dl (74-100); HDL Cholesterol 46 mg/dl (40-60); Total Protein,Serum 7.1 g/dl (6.3-8.2); Triglycerides 146 mg/dl (30-150); VLDL Cholesterol 29 mg/dL (0-40)
[2021-05-07 11:50] LABS: Direct LDL Cholesterol 148.47 mg/dL (100-129)
[2021-05-07 12:44] LABS: Chol/HDL Ratio 4.9 (1-3.5); Cholesterol 224 mg/dl (140-200)
[2021-05-08 12:42] LABS: FSH 8.3 mIU/mL (.); LH 10.5 mIU/mL (.)
== END ==
PROVIDERS: Visit Provider Nurse Practitioner Obstetrics & Gynecology
DX: Z01.419 Encounter for gynecological examination (general) (routine) without abnormal findings (principal); N95.1 Menopausal and female climacteric states
CPT/HCPCS: 36415; 80053; 80061; 83001; 83002; 85025

== ENCOUNTER → 2021-08-07 18:18 | Outpatient (CLI) | payer OTHER, BC, SELFPAY | PROVIDERS: Visit Provider Emergency Medicine | DX: Z20.822 Contact with and (suspected) exposure to COVID-19 (principal) | CPT/HCPCS: C9803; U0003; U0005 ==

== ENCOUNTER → 2021-09-04 17:35 | Outpatient (CLI) | payer OTHER, BC, SELFPAY ==
[2021-09-04 19:40] LABS: Amphetamine/Metha Screen,Urine Negative ng/ml (<1000); Barbiturates Screen,Urine Negative ng/ml (<200)
[2021-09-04 19:41] LABS: Benzodiazepines Screen,Urine Positive ng/ml (<200)
[2021-09-04 21:05] LABS: Cannabinoid Screen,Urine Negative ng/ml (<50)
[2021-09-04 21:06] LABS: Cocaine Screen,Urine Negative ng/ml (<300); Methadone Screen,Urine Negative ng/ml (<300)
[2021-09-04 21:07] LABS: Opiate Screen,Urine Positive ng/ml (<300)
[2021-09-04 21:10] LABS: Phencyclidine Screen,Urine Negative ng/ml (<25)
== END ==
PROVIDERS: Visit Provider Emergency Medicine
DX: M51.16 Intervertebral disc disorders with radiculopathy, lumbar region (principal)
CPT/HCPCS: 80305

== ENCOUNTER → 2021-09-09 20:12 | Outpatient (CLI) | payer OTHER, BC, SELFPAY | PROVIDERS: PCP Emergency Medicine; Visit Provider Nurse Practitioner | DX: Z20.822 Contact with and (suspected) exposure to COVID-19 (principal) | CPT/HCPCS: C9803; U0003; U0005 ==

== ENCOUNTER → 2021-10-29 15:01 | Outpatient (CLI) | payer OTHER, BC, SELFPAY ==
--- NOTE | 2021-10-29 15:08 | US_ITS ---
PROCEDURE INFORMATION: Exam: US Right Breast, Complete MG Right Diagnostic Breast Tomosynthesis Exam date and time: 10/29/2021 3:08 PM Age: 50 years old Clinical indication: Short-term radiographic follow-up for probably benign findings in the right breast TECHNIQUE: Imaging protocol: Complete ultrasound of all four quadrants of the Right breast and the retroareolar regions, including ultrasound of the axilla when performed. Right Diagnostic tomosynthesis and 2D mammography including computer-aided detection (CAD) when performed. Unilateral or bilateral exam. COMPARISON: 1. MG MM DIG MAMM DX UNILAT RT CAD 04/17/2021 3:09 PM 2. MG MM DIG SCREENING MAMM BI W/CAD 03/27/2021 10:32 AM 3. Sonogram dated 04/17/2021 FINDINGS: MAMMOGRAPHY: The breast tissue is composed of scattered areas of fibroglandular density. There is no stellate mass, architectural distortion or suspicious microcalcifications to suggest malignancy. Digital diagnostic spot compression views of the right breast demonstrate normal overlapping fibroglandular structures without persistent mass or asymmetry identified. No skin thickening or axillary adenopathy. ULTRASOUND: Sonographic images of the right breast including the retroareolar region, all 4 quadrants and the axilla demonstrates few scattered subcentimeter cysts. Stable hypoechoic solid mass in the 10 o'clock axis 7 cm from the nipple measures 1.1 x 0.4 x 1.1 cm in dimension. No architectural distortion or acoustical shadowing. No skin thickening or axillary adenopathy. IMPRESSION: 1. Stable sonographically visible right breast mass compared to prior ultrasound dated 04/17/2021. A six-month follow-up targeted right breast ultrasound is recommended for continued close surveillance unless otherwise clinically indicated. 2. Annual bilateral mammographic screening is also recommended at that time. ASSESSMENT: BI-RADS Category 3: Probably benign
== END ==
PROVIDERS: PCP Emergency Medicine; Visit Provider Emergency Medicine
DX: R92.8 Other abnormal and inconclusive findings on diagnostic imaging of breast (principal)
CPT/HCPCS: 76641; 77061; 77065; G0279

== ENCOUNTER → 2022-01-02 17:09 | Outpatient (CLI) | payer OTHER, BC, SELFPAY ==
--- NOTE | 2022-01-02 17:13 | MR_ITS ---
PROCEDURE INFORMATION: Exam: MR Right Upper Extremity Joint Without Contrast; Shoulder Exam date and time: 01/02/2022 5:20 PM Age: 51 years old Clinical indication: Pain; Shoulder; Right; Additional info: Impingement syndrome of right shoulder TECHNIQUE: Imaging protocol: MR of the Right upper extremity without contrast. Exam focused on the shoulder. Total images: 162 COMPARISON: [employer]/O MRI-C-SPINE W/O 06/05/2017 10:55 AM FINDINGS: Bones and cartilage: Neutral acromial slope without significant lateral arch stenosis. No fractures or bone contusions. Minor subcortical cystic changes at the supraspinatus attachment, likely enthesopathy. Joint spaces: The right AC joint demonstrates mild hypertrophic spurring superiorly and inferiorly, producing mild medial arch stenosis anteriorly, minimally impinging on the anterior margin of the supraspinatus myotendinous junction on sagittal reconstructions. Minor subarticular edema on the coronal STIR. No significant joint effusion. Glenoid labrum: Posterior glenoid labrum demonstrates PD hyperintense undercutting in the midportion extending a short distance into the posterosuperior labrum, suggesting a small nondisplaced posterosuperior labral tear. No involvement of the biceps labral anchor. The anterior inferior labrum is somewhat small/truncated, which might reflect chronic changes of prior injury, with no discrete tear identified currently. No juxta labral cyst. Bursae: Excessive STIR hyperintensity in the subacromial/subdeltoid bursa distributions suggesting mild peritendinitis. Supraspinatus tendon: The supraspinatus tendon is intact. Infraspinatus tendon: The infraspinatus tendon is intact. Subscapularis tendon: The subscapularis tendon is intact. Teres minor tendon: The teres minor tendon is intact. Tendon of biceps brachii: The biceps long head tendon is intact and maintains appropriate course within the bicipital groove. Glenohumeral ligaments: Unremarkable. Muscles: No muscular abnormalities. Soft tissues: Unremarkable. Lymph nodes: No adenopathy. IMPRESSION: 1. Excessive stir/PD hyperintensity in the subacromial/subdeltoid bursa consistent with peritendinitis, without rebekah bursal fluid. 2. No rotator cuff tears are identified. 3. 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 Neutral acromial slope without substantial lateral arch stenosis. 4. Suspect small nondisplaced posterosuperior labral tear
== END ==
PROVIDERS: PCP Emergency Medicine; Visit Provider Orthopaedic Surgery Adult Reconstructive Orthopaedic Surgery
DX: M75.41 Impingement syndrome of right shoulder (principal)
CPT/HCPCS: 73221

== ENCOUNTER 2022-05-09 11:00 | Outpatient (RCR) | payer OTHER, BC, SELFPAY | END 2022-05-09 11:05 | disposition home or self-care (01) | LOC: OT 11:00 | PROVIDERS: PCP Emergency Medicine; Visit Provider Orthopaedic Surgery Adult Reconstructive Orthopaedic Surgery | DX: M25.511 Pain in right shoulder (principal); Z98.890 Other specified postprocedural states | CPT/HCPCS: 97010; 97014; 97035; 97110; 97140; 97164; 97165; 97530; G0283 ==

== ENCOUNTER → 2022-06-16 16:00 | Outpatient (CLI) | payer OTHER, BC, SELFPAY ==
[2022-06-16 17:53] LABS: Amphetamine/Metha Screen,Urine Negative ng/ml (<1000)
[2022-06-16 17:54] LABS: Barbiturates Screen,Urine Negative ng/ml (<200); Benzodiazepines Screen,Urine Positive ng/ml (<200)
[2022-06-16 17:55] LABS: Cannabinoid Screen,Urine Negative ng/ml (<50); Cocaine Screen,Urine Negative ng/ml (<300)
[2022-06-16 17:56] LABS: Methadone Screen,Urine Negative ng/ml (<300)
[2022-06-16 17:57] LABS: Opiate Screen,Urine Negative ng/ml (<300); Phencyclidine Screen,Urine Negative ng/ml (<25)
== END ==
PROVIDERS: PCP Emergency Medicine; Visit Provider Emergency Medicine
DX: M54.41 Lumbago with sciatica, right side (principal)
CPT/HCPCS: 80305

== ENCOUNTER → 2022-09-18 06:49 | Outpatient (CLI) | payer OTHER, BC, SELFPAY | PROVIDERS: PCP Student in an Organized Health Care Education/Training Program; Visit Provider Student in an Organized Health Care Education/Training Program | DX: U07.1 COVID-19 (principal) | CPT/HCPCS: C9803; U0003; U0005 ==

== ENCOUNTER 2023-03-26 04:24 | Emergency (ER) | payer OTHER, BC, SELFPAY ==
[2023-03-26 04:24] VITALS: BP 169/99; PULSE 115; RESP 15; TEMP 36.7; O2SAT 100; BMI 28.1
[2023-03-26 04:28] VITALS: BMI 28.1
[2023-03-26 04:29] VITALS: BP 163/99; PULSE 100; RESP 20; O2SAT 100
--- NOTE | 2023-03-26 04:29 | ECG_ITS ---
APPROVED REPORT Exam: Resting ECG HR:98 bpm ECG Measurements Heart Rate 98 AXES ND 153 P 56 QRSd 88 QRS 3 QT 340 T 48 QTc 396 Conclusion SINUS RHYTHM WITH OCCASIONAL VENTRICULAR PREMATURE COMPLEXES POSSIBLE LEFT ATRIAL ENLARGEMENT [-0.1mV P-WAVE IN V1/V2] POSSIBLE LEFT VENTRICULAR HYPERTROPHY [VOLTAGE CRITERIA PLUS LAE OR QRS WIDENING] ABNORMAL ECG UNCONFIRMED REPORT Electronically signed by : Michelet Owen MD 03/26/2023 21:35:02
--- NOTE | 2023-03-26 04:36 | PC.NURSE ---
ORDERS PLACED PER AT BEDSIDE
--- NOTE | 2023-03-26 04:55 | [facility]H.EDCP ---
Discharge Plan Disposition Patient Disposition: Home, Self-Care Chief Complaint: Chest Pain Prescriptions Prescriptions: No Action esomeprazole magnesium 20 mg tablet,delayed release (DR/EC) 40 mg PO DAILY Qty: 90 0RF trazodone 50 mg tablet 50 mg PO HS phentermine [Adipex-P] 37.5 mg tablet 37.5 mg PO DAILY Rx Instructions: must administer 30 minutes before or 1-2 hours after breakfast oxycodone-acetaminophen [Percocet] 10-325 mg tablet 1 tab PO QID lisinopril 10 mg tablet See Rx Instructions .ROUTE .COMPLEX MDD high blood pre Rx Instructions: TAKE 1 TAB BY MOUTH ONCE DAILY FOR BLOOD PRESSURE Referrals Follow up/Referrals: Provider,Referral, MD [Primary Care Provider] - See instructions Clinical Impressions Clinical Impression: Heart palpitations Stand Alone Forms Stand Alone Forms: Work/School Release Discharge ED Provider: Thor Newman Chest Pain HPI General Chief Complaint: Chest Pain Stated Complaint: chest pain Time Seen by Provider: 03/26/23 04:30 Mode of Arrival: Family Vehicle Source of Information: Patient Limitations: No Limitations Description of Symptoms (Recalled from ER Triage Doc. by RN): 52 YO FEMALE PRESENTS WITH CC OF MIDSTERNAL CHEST PAIN RADIATING THROUGHOUT CHEST BUT NO OTHER LOCATIONS. STATES IT BEGAN INTERMITTENTLY YESTERDAY AND CONTINUED THROUGHOUT THE DAY, ALARMING HER WHEN S HE ATTEMPTED TO CHECK HER PULSE AND HER WATCH MALFUNCTIONED. ACCORDING TO HER, HER RECENTLY IN THIS HOSPITAL UNEXPECTEDLY AND WITH HER BEING HOME ALONE BY HERSELF SHE BECAME EXTREMELY ANXIOUS AND CAME TO GET CHECKED OUT. DENIES DYSPNEA. DENIES N/V/D. DENIES SICK CONTACT. PMH: HYPERTENSION AND CHRONIC PAIN. History of Present Illness HPI narrative: 52-year-old white female presents with chest pain that has been intermittent throughout the day she has sharp chest pain mostly substernal not accompanied by shortness of breath diaphoresis nausea or vomiting. She has children that live in the area but they work out of state and are gone all week so essentially has very little support group. Related Data Home Medications Medication Instructions Recorded Confirmed lisinopril 10 mg tablet See Rx Instructions .Route 03/26/23 03/26/23 .COMPLEX High Blood Pressure oxycodone-acetaminophen 10 mg-325 1 tab PO QID psin 03/26/23 03/26/23 mg tablet (Percocet) phentermine 37.5 mg tablet 37.5 mg PO DAILY Weight Loss 03/26/23 03/26/23 (Adipex-P) trazodone 50 mg tablet 50 mg PO HS sleep 03/26/23 03/26/23 Previous Rx's Medication Instructions Recorded esomeprazole magnesium 20 mg 40 mg PO DAILY GERD #90 tabs 01/22/23 tablet,delayed release Allergies Allergy/AdvReac Type Severity Reaction Status Date / Time No Known Allergies Allergy Verified 02/02/23 15:27 [facility] Disclaimer: The information contained in this section may have been updated after the patient was seen, as this information can be updated by other users. Social History Smoking Status: Current every day smoker tobacco type: cigarettes packs per day: 1 second hand exposure: No alcohol intake: current counseling provided: none substance use type: denies use current occupational status: employed Travel in the last 8 weeks: None household members: spouse housing: apartment current occupational exposures/hazards: No caffeine: Yes ROS Obtained: Yes Systems reviewed as appropriate & no additional complaints except as documented Physical Exam General General appearance: alert and other (Crying at times) Head Head exam: atraumatic and normocephalic Eye Eye exam: Present normal appearance and PERRL ENT ENT exam: Present normal exam and normal oropharynx Respiratory Respiratory exam: Present normal lung sounds bilaterally; Absent respiratory distress Cardiovascular Cardiovascular exam: Present re
--- NOTE | 2023-03-26 05:02 | XR_ITS ---
PROCEDURE INFORMATION: Exam: XR Chest Exam date and time: 03/26/2023 4:47 AM Age: 52 years old Clinical indication: Sternal or substernal pain; Additional info: Cp TECHNIQUE: Imaging protocol: Radiologic exam of the chest. Views: 2 views. COMPARISON: CR XR CHEST PORTABLE 12/26/2019 2:31 PM FINDINGS: Lungs: Clear, symmetrically inflated lungs. Pleural spaces: No pleural effusion. No pneumothorax. Heart/Mediastinum: Cardiac silhouette is normal in size for technique. Bones/joints: Age appropriate. IMPRESSION: No acute cardiopulmonary abnormality.
[2023-03-26 05:07] LABS: Hematocrit 44.1 % (37.0-47.0); Hemoglobin 13.8 g/dL (12.2-16.2); Mean Corpuscular HGB Conc 31.4 g/dL (31.8-35.4); Mean Corpuscular Hemoglobin 29.6 pg (27.0-31.2); Mean Corpuscular Volume 94.2 fl (81-99); Red Blood Count 4.68 M/mm3 (4.20-5.40); White Blood Count 12.7 K/mm3 (4.8-10.8)
[2023-03-26 05:08] LABS: Basophils # 0.1 K/mm3 (0-0.2); Basophils % 0.8 % (0.1-2.0); Eosinophils # 0.2 K/mm3 (0.0-0.4); Eosinophils % 1.4 % (0.1-12.0); Lymphocytes # 4.6 K/mm3 (0.7-4.5); Lymphocytes % 35.8 % (10-50); Mean Platelet Volume 7.8 fl (7.4-10.4); Monocytes # 0.7 K/mm3 (0.1-1.0); Monocytes % 5.7 % (1.7-9.3); Neutrophils # 6.9 K/mm3 (1.8-7.8); Neutrophils % 54.6 % (37.0-80.0); Platelet Count 419 K/mm3 (142-424); Red Cell Distribution Width 13.3 % (11.5-17.5)
[2023-03-26 05:25] LABS: Anion Gap 13.2 mEq/L (5-15); Blood Urea Nitrogen 9 mg/dl (7-17); Calcium 9.7 mg/dl (8.4-10.2); Carbon Dioxide 26 mmol/L (22.0-30.0); Chloride 104 mmol/L (98-107); Creatinine Clearance Estimated 124 mL/min (50-200); Estimated Glomerular Filt Rate 89 ml/min (>60); GFR (African American) 107 ML/MIN (>60); Glucose 134 mg/dl (74-100); Potassium 3.2 mmoL/L (3.5-5.1); Sodium 140 mmol/L (136-145); Troponin I < 0.01 ng/ml (0.00-0.034)
[2023-03-26 05:30] VITALS: BP 141/83; PULSE 58; RESP 18; O2SAT 99
[2023-03-26 06:00] VITALS: BP 128/80; PULSE 75; RESP 18; O2SAT 100
[2023-03-26 06:30] VITALS: BP 140/99; PULSE 60; RESP 20; O2SAT 99
[2023-03-26 06:41] VITALS: BP 131/75; PULSE 115; PULSE 64; RESP 18; TEMP 36.7; O2SAT 99
== END 2023-03-26 06:42 | disposition home or self-care (01) ==
PROVIDERS: Emergency Provider Emergency Medicine
DX: R07.9 Chest pain, unspecified (principal); R00.2 Palpitations; F17.210 Nicotine dependence, cigarettes, uncomplicated
CPT/HCPCS: 71046; 80048; 84484; 85025; 93005; 99285

== ENCOUNTER → 2023-03-31 13:55 | Outpatient (CLI) | payer OTHER, BC, SELFPAY ==
[2023-03-31 19:49] LABS: Amphetamine/Metha Screen,Urine Negative ng/ml (<1000); Barbiturates Screen,Urine Negative ng/ml (<200)
[2023-03-31 19:50] LABS: Benzodiazepines Screen,Urine Negative ng/ml (<200)
[2023-03-31 19:51] LABS: Cannabinoid Screen,Urine Negative ng/ml (<50)
[2023-03-31 19:54] LABS: Cocaine Screen,Urine Negative ng/ml (<300); Opiate Screen,Urine Negative ng/ml (<300)
[2023-03-31 19:55] LABS: Methadone Screen,Urine Negative ng/ml (<300)
[2023-03-31 19:56] LABS: Phencyclidine Screen,Urine Negative ng/ml (<25)
== END ==
PROVIDERS: PCP Emergency Medicine; Visit Provider Emergency Medicine
DX: Z79.899 Other long term (current) drug therapy (principal)
CPT/HCPCS: 80305

== ENCOUNTER → 2023-05-29 15:30 | Outpatient (CLI) | payer OTHER, BC, SELFPAY ==
[2023-05-29 19:44] LABS: Amphetamine/Metha Screen,Urine Negative ng/ml (<1000)
[2023-05-29 19:45] LABS: Barbiturates Screen,Urine Negative ng/ml (<200)
[2023-05-29 19:46] LABS: Benzodiazepines Screen,Urine Negative ng/ml (<200); Cannabinoid Screen,Urine Negative ng/ml (<50)
[2023-05-29 19:47] LABS: Cocaine Screen,Urine Negative ng/ml (<300); Methadone Screen,Urine Negative ng/ml (<300)
[2023-05-29 19:48] LABS: Opiate Screen,Urine Positive ng/ml (<300)
[2023-05-29 19:49] LABS: Phencyclidine Screen,Urine Negative ng/ml (<25)
== END ==
PROVIDERS: PCP Emergency Medicine; Visit Provider Emergency Medicine
DX: Z79.899 Other long term (current) drug therapy (principal)
CPT/HCPCS: 80305

== ENCOUNTER 2023-09-23 18:17 | Outpatient (CLI) | payer OTHER, BC, SELFPAY ==
[2023-09-23 21:38] LABS: Amphetamine/Metha Screen,Urine Negative ng/ml (<1000); Methadone Screen,Urine Negative ng/ml (<300); Opiate Screen,Urine Negative ng/ml (<300); Phencyclidine Screen,Urine Negative ng/ml (<25)
[2023-09-23 21:52] LABS: Barbiturates Screen,Urine Negative ng/ml (<200)
[2023-09-23 22:04] LABS: Benzodiazepines Screen,Urine Negative ng/ml (<200); Cannabinoid Screen,Urine Negative ng/ml (<50); Cocaine Screen,Urine Negative ng/ml (<300)
[2023-09-29 17:09] LABS: Opiates Negative (Cutoff=100); Oxycodone (GC/MS) 611 ng/mL (Cutoff=100); Oxymorphone (GC/MS) 812 ng/mL (Cutoff=100)
== END 2023-09-23 23:59 ==
LOC: LAB.DROPOF 18:18
PROVIDERS: PCP Nurse Practitioner Family; Visit Provider Nurse Practitioner Family
DX: Z79.899 Other long term (current) drug therapy (principal); F41.9 Anxiety disorder, unspecified; M47.816 Spondylosis without myelopathy or radiculopathy, lumbar region
CPT/HCPCS: 80307; 80361; 80365; G0480

== ENCOUNTER 2023-10-14 19:23 | Outpatient (CLI) | payer OTHER, BC, SELFPAY ==
[2023-10-14 18:43] LABS: Amphetamine/Metha Screen,Urine Negative ng/ml (<1000)
[2023-10-14 18:44] LABS: Barbiturates Screen,Urine Negative ng/ml (<200); Benzodiazepines Screen,Urine Negative ng/ml (<200)
[2023-10-14 18:45] LABS: Cannabinoid Screen,Urine Negative ng/ml (<50)
[2023-10-14 18:46] LABS: Cocaine Screen,Urine Negative ng/ml (<300)
[2023-10-14 18:47] LABS: Opiate Screen,Urine Negative ng/ml (<300)
[2023-10-14 18:48] LABS: Phencyclidine Screen,Urine Negative ng/ml (<25)
[2023-10-14 19:40] LABS: Methadone Screen,Urine Negative ng/ml (<300)
== END 2023-10-14 23:59 ==
LOC: LAB.DROPOF 19:24
PROVIDERS: PCP Family Medicine; Visit Provider Family Medicine
DX: Z79.899 Other long term (current) drug therapy (principal)
CPT/HCPCS: 80307

== ENCOUNTER 2024-02-01 15:36 | Emergency (ER) | payer BC, SELFPAY ==
[2024-02-01 15:50] VITALS: BP 162/93; PULSE 75; RESP 19; TEMP 37.2; O2SAT 96; BMI 27.8
--- NOTE | 2024-02-01 15:59 | EXP.UTC ---
Discharge Plan Disposition Patient Disposition: Home, Self-Care Condition: Good Prescriptions Prescriptions: New amoxicillin-pot clavulanate 875-125 mg Tablet 1 tab PO Q12H Qty: 20 0RF guaifenesin [Mucinex] 600 mg tablet extended release 12hr 1,200 mg PO BID PRN (Reason: cough) Qty: 20 0RF albuterol sulfate [Proventil HFA] 90 mcg/actuation HFA aerosol inhaler 2 puff inhalation Q6H PRN (Reason: shortness of breath or wheezing) Qty: 8.5 0RF benzonatate 100 mg capsule 100 mg PO TID PRN (Reason: cough) Qty: 30 0RF No Action Veozah 45 mg tablet 45 mg PO DAILY Qty: 30 3RF oxycodone-acetaminophen [Percocet] 10-325 mg tablet 1 tab PO QID PRN (Reason: pain) Qty: 60 0RF Rx Instructions: until she can establish with pain management trazodone 50 mg tablet 50 mg PO DAILY Rx Instructions: TAKE 1 TABLET BY MOUTH AT BEDTIME escitalopram oxalate 10 mg tablet 10 mg PO DAILY Rx Instructions: TAKE 1 TABLET ORALLY ONCE DAILY Referrals Follow up/Referrals: Lee Mejia MD [Primary Care Provider] - See instructions Activity Restrictions/Add. Instructions Additional Instructions/Restrictions: Start antibiotic today. Be sure to complete entire prescription even if feeling better Monitor temp. Tylenol every 4 hours as needed and / or ibuprofen every 6 hours as needed ( As long as your primary care physician has told you that it ok to take both. For fever/aches/pains ER if no less than 101 despite Tylenol or Motrin Humidifier/vaporizer or hot steamy shower Inhaler every 4-6 hours as needed like we discussed. If unsure how to use it, ask pharmacist to demonstrate how. Should help open airways and improve cough, wheezing, and shortness of breath Mucinex during the day for your cough and cough suppressant only at night. Be sure to drink lots of water. *Start steroid today. Helps with inflammation therefore, cough and wheezing. Follow directions on the package. Reviewed side effects. Patient reports taking them before. Follow up IMMEDIATELY for new or worsening of symptoms OR no noticeable improvement over the next 48-72 hours. 911 immediately for any life threatening symptoms such as chest pain or difficulty breathing Clinical Impressions Clinical Impression: Bronchitis Stand Alone Forms Stand Alone Forms: Work/School Release Instructions Patient Instructions: Acute Bronchitis Discharge ED Provider: Adilene Redd [facility] [place] HPI General Stated complaint: SOA Mode of Arrival: Ambulatory Source of Information: Patient Limitations: No Limitations Time Seen by Provider: 02/01/24 16:01 Description of Symptoms (Recalled from Triage Doc. by RN): PATIENT C/O CHEST CONGESTION, COUGH, AND EARS CLOGGED SINCE THURSDAY EVENING HEENT Symptoms (Recalled from RN notes): Yes Resp Symptoms (Recalled from RN notes): Yes Skin Symptoms (Recalled from RN notes): No MS Symptoms (Recalled from RN notes): No Functional Status (Recalled from RN notes): WNL History of Present Illness Provider Complaint: Patient states that she has been having cough, chest congestion, scratchy throat and over all not feeling well for several days States that she isnt coughing much up but feels rattly at night States today she wasnt feeling any better so she came in to get checked States that she is an everyday smoker Related Data Home Medications Medication Instructions Recorded Confirmed escitalopram oxalate 10 mg tablet 10 mg PO DAILY 02/01/24 02/01/24 trazodone 50 mg tablet 50 mg PO DAILY 02/01/24 02/01/24 Previous Rx's Medication Instructions Recorded fezolinetant 45 mg tablet (Veozah) 45 mg PO DAILY #30 tabs 12/25/23 oxycodone-acetaminophen 10 mg-325 1 tab PO QID PRN pain #60 tabs 01/22/24 mg tablet (Percocet) albuterol sulfate 90 mcg/actuation 2 puff inhalation Q6H PRN 02/01/24 aerosol inhaler (Proventil HFA) shortness of breath or wheezing #8.5 grams amoxicillin 875 mg-potassium 1 tab PO Q12H #20 tabs 02/01/24 clavulanate 125 mg tablet benzonatate 100 mg capsule 100 mg PO TID PRN cough #30 caps 02/01/24 guaifenesin 600 mg tablet, 1,200 mg (2 x 600 mg) PO BID PRN 02/01/24 extended release 12 hr (Mucinex) cough #20 tabs Allergies Allergy/AdvReac Type Severity Reaction Status Date / Time No Known Allergies Allergy Verified 12/28/23 08:54 Worker's Comp Is this a Worker's Comp case?: No [facility] Disclaimer: The information contained in this section may have been updated after the patient was seen, as this information can be updated by other users. 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 Lumbar facet arthropathy Lumbar disc disease with radiculopathy Lumbar spondylosis Sciatica Surgical History Hx of cystostomy Hx of wisdom tooth extraction Hx of spinal surgery Hx of hysterectomy Hx of knee surgery Family History Other Family history non-contributory Social History Smoking Status: Current every day smoker tobacco type: cigarettes packs per day: 1 second hand exposure: No alcohol intake: never counseling provided: none substance use type: denies use current occupational status: employed Travel in the last 8 weeks: None household members: spouse housing: apartment number of children: 3 current occupational exposures/hazards: No caffeine: Yes ROS Obtained: Yes All systems reviewed & no additional complaints except as documented and Yes Systems reviewed as appropriate & no additional complaints except as documented ENT Ears, Nose, Mouth, and Throat: Reports system reviewed and no additional complaints, except as documented and Reports as per HPI Cardiovascular Cardiovascular: Reports system reviewed and no additional complaints, except as documented and Reports as per HPI Respiratory Respiratory: Reports system reviewed and no additional complaints, except as documented, Reports as per HPI, Reports shortness of breath (at times), Reports chest congestion and Reports cough Gastrointestinal Gastrointestingal: Reports system reviewed and no additional complaints, except as documented and as per HPI Physical Exam General General appearance: alert and in no apparent distress ENT ENT exam: Present mucous membranes moist Expanded ENT Exam Nose exam: Present sinus tenderness Throat exam: Present other (white patchy like areas noted pharyngeal area ) Respiratory Respiratory exam: Present normal lung sounds bilaterally; Absent respiratory distress or wheezes Cardiovascular Cardiovascular exam: Present regular rate, normal rhythm and normal heart sounds Neurological Exam Neurological exam: Present alert, oriented X3 and normal gait Medical Decision Making Tristan Inquiry Pt receiving controlled substance: No Tristan was queried for this patient: No Vital Signs: 02/01/24 15:50 Temperature 98.9 F Temperature Source Oral Pulse Rate [Left Brachial] 75 Respiratory Rate 19 Blood Pressure [Left Arm] 162/93 H Blood Pressure Mean [Left Arm] 116 Blood Pressure Source [Left Arm] Automatic Cuff Blood Pressure Position [Left Arm] Sitting 02 Sat by Pulse Oximetry 96 Oxygen Delivery Method Room Air
[2024-02-01] MEDS: METHYLPREDNISOLONE SOD SUCC 125MG VIAL 125 MG IM (16:19)
[2024-02-01 16:25] VITALS: BP 150/93; PULSE 75; RESP 19; TEMP 37.2; O2SAT 96
== END 2024-02-01 16:33 | disposition home or self-care (01) ==
PROVIDERS: Emergency Provider Nurse Practitioner; PCP Family Medicine
DX: J20.9 Acute bronchitis, unspecified (principal); R05.9 Cough, unspecified; R07.0 Pain in throat; F17.210 Nicotine dependence, cigarettes, uncomplicated
CPT/HCPCS: 96372; 99204; 99212; G0463

== ENCOUNTER 2024-11-02 15:30 | Outpatient (CLI) | payer OTHER, SELFPAY ==
[2024-11-02 18:21] LABS: Basophils # 0.1 K/mm3 (0-0.2); Basophils % 1.2 % (0.1-2.0); Eosinophils # 0.1 K/mm3 (0.0-0.4); Eosinophils % 1.1 % (0.1-12.0); Hemoglobin 14.6 g/dL (12.2-16.2); Lymphocytes # 4.2 K/mm3 (0.7-4.5); Lymphocytes % 35.7 % (10-50); Mean Corpuscular HGB Conc 33.2 g/dL (31.8-35.4); Mean Corpuscular Hemoglobin 30.9 pg (27.0-31.2); Mean Corpuscular Volume 93.2 fl (81-99); Mean Platelet Volume 10.6 fl (7.4-10.4); Monocytes # 0.7 K/mm3 (0.1-1.0); Monocytes % 5.7 % (1.7-9.3); Neutrophils # 6.5 K/mm3 (1.8-7.8); Neutrophils % 56.1 % (37.0-80.0); Platelet Count 473 K/mm3 (142-424); Red Blood Count 4.72 M/mm3 (4.20-5.40); Red Cell Distribution Width 13.4 % (11.5-17.5); White Blood Count 11.7 K/mm3 (4.8-10.8)
[2024-11-02 18:43] LABS: Chloride 106 mmol/L (98-107)
[2024-11-02 18:44] LABS: Potassium 4.2 mmoL/L (3.5-5.1); Sodium 143 mmol/L (136-145)
[2024-11-02 18:46] LABS: Alanine Aminotransferase 24 U/L (12-78); Anion Gap 12.2 mEq/L (5-15); Aspartate Amino Transferase 24 U/L (14-36); Blood Urea Nitrogen 14 mg/dl (7-17); Carbon Dioxide 29 mmol/L (22.0-30.0); Estimated Glomerular Filt Rate 76 ml/min (>60); GFR (African American) 92 ML/MIN (>60)
[2024-11-02 18:47] LABS: Albumin/Globulin Ratio 1.9 (1.1-1.8); Alkaline Phosphatase 91 U/L (38-126); Bilirubin,Total 0.4 mg/dl (0.2-1.3); Calcium 10.5 mg/dl (8.4-10.2); Globulin 2.6 g/dL (1.3-3.2); Glucose 92 mg/dl (74-100); Total Protein,Serum 7.6 g/dl (6.3-8.2)
[2024-11-02 19:13] LABS: Thyroid Stimulating Hormone 0.62 uIU/mL (0.465-4.68)
== END 2024-11-02 23:59 | disposition home or self-care (01) ==
LOC: LAB.DROPOF 11-03 12:34
PROVIDERS: PCP Family Medicine; Visit Provider Family Medicine
DX: R63.4 Abnormal weight loss (principal)
CPT/HCPCS: 80053; 84443; 85025

== ENCOUNTER 2025-02-16 12:05 | Day surgery (SDC) | payer MEDICAID, SELFPAY ==
[2025-02-16 12:27] VITALS: BP 157/86; PULSE 78; RESP 16; TEMP 36.3; O2SAT 95
--- NOTE | 2025-02-16 12:41 | EXP.HP ---
History of Present Illness *Admission Date: 02/16/25 *Reason for visit:: Moses's esophagus and weight loss *History of present illness: Mrs. Phillip is a 54-year-old female who is here for surveillance upper endoscopy secondary to Moses's esophagus. The patient also has dyspepsia with bloating, epigastric abdominal discomfort and early satiety. The examination is deemed medically necessary for upper endoscopy. The patient has been seen, interviewed and examined prior to the procedure by both myself and the anesthesia provider. [facility] Disclaimer: The information contained in this section may have been updated after the patient was seen, as this information can be updated by other users. 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 Lumbar facet arthropathy Lumbar disc disease with radiculopathy Lumbar spondylosis Sciatica Surgical History Hx of cystostomy Hx of wisdom tooth extraction Hx of spinal surgery Hx of hysterectomy Hx of knee surgery Family History Other Family history non-contributory Social History Smoking Status: Current every day smoker tobacco type: cigarettes packs per day: 1 second hand exposure: No alcohol intake: current alcohol intake frequency: holidays/special occasions only counseling provided: none substance use type: denies use current occupational status: employed Travel in the last 8 weeks?: None household members: spouse housing: apartment number of children: 3 current occupational exposures/hazards: No caffeine: Yes Have you lived/traveled outside US in past 30 days?: No Contact w/someone who lives/traveled outside US past 30 days?: No Exposure to someone with infectious disease in past 14 days?: No Do you have a fever (greater than 100.4 F or 38 C)?: No Have you tested positive for COVID-19?: No Exposed to someone with COVID-19 in past 14 days?: No Do you have a sore throat?: No Do you have a cough?: No Do you have any weakness?: No Are you experiencing any nausea/vomitting?: No Do you have any diarrhea?: No Are you experiencing any unusual bleeding?: No Do you have any muscle aches/pain?: No Do you have any abdominal pain?: No Are you experiencing loss of taste or smell?: No Other Medical History Have you received the Flu Vaccine for this season: No Have you received the Pneumonia Vaccine: No Review of Systems Review of Systems Review of systems (narrative): Negative *Cardiovascular Comments: Negative *Gastrointestinal Comments: Negative *Genitourinary Comments: Negative *Musculoskeletal Comments: Negative *Neurologic Comments: Negative Meds Home Medications and Allergies Home Medications ?Medication ?Instructions ?Recorded ?Confirmed ?Type oxycodone-acetaminophen 10 mg-325 1 tab PO QID PRN pain #20 tabs 02/10/24 02/16/25 Rx mg tablet (Percocet) montelukast 10 mg tablet 10 mg PO BID 12/07/24 02/16/25 History (Singulair) naproxen 500 mg tablet 500 mg PO DAILYDM PRN . 12/07/24 02/16/25 History New Prescriptions to Start Prescriptions: Allergies Allergy/AdvReac Type Severity Reaction Status Date / Time No Known Allergies Allergy Verified 01/14/25 14:29 Exam Data for Last 24 hours Vital signs and Labs for Last 24 Hours: Temp Pulse Resp BP Pulse Ox O2 Del Method 97.3 F L 78 16 157/86 H 95 Room Air 02/16/25 12:27 02/16/25 12:27 02/16/25 12:27 02/16/25 12:27 02/16/25 12:27 02/16/25 12:27 *Routine HEENT Exam Head: Present normocephalic Eye: Present EOMI and PERRL ENT: Present mucous membranes moist *Routine Neck Exam Neck: Present supple *Routine Respiratory Exam Respiratory: Present CTA bilaterally *Routine Cardiovascular Exam Cardiovascular: Present RRR *Routine Abdominal Exam Abdominal: Present soft and normoactive bowel sounds; Absent tenderness *Routine Rectal Exam Rectal:: deferred *Routine Genitalia Exam Genitalia:: deferred *Routine Extremities Exam Extremities: Absent cyanosis, clubbing or edema *Routine Skin Exam Skin: Present warm; Absent rash *Routine Neurological Exam Neurological: Present alert and oriented X3 Assessment and Plan *Assessment and plan (1) Barretts esophagus: Status: Acute Category: Medical Code(s): K22.70 - Moses's esophagus without dysplasia (2) Weight loss: Status: Acute Category: Medical Code(s): R63.4 - Abnormal weight loss (3) Functional dyspepsia: Status: Acute Category: Medical Code(s): K30 - Functional dyspepsia (4) Epigastric pain: Status: Acute Category: Medical Code(s): R10.13 - Epigastric pain (5) Bloating: Status: Acute Category: Medical Code(s): R14.0 - Abdominal distension (gaseous) (6) Early satiety: Status: Acute Category: Medical Code(s): R68.81 - Early satiety Plan A/P: 1. Msoes's esophagus is the preprocedural diagnosis. The patient also has epigastric abdominal pain, bloating and early satiety. The patient will be anesthetized/sedated using MAC sedation. The patient has been seen and examined. Cardiac and lung assessment prior to the examination is stable. Proceed with planned upper endoscopy.
[2025-02-16 12:43] VITALS: BMI 26.6
[2025-02-16] MEDS: LACTATED RINGERS 1000ML 1,000 ML 50 ML IV (12:45)
--- NOTE | 2025-02-16 13:05 | P.PNANES_ITS ---
[facility] Disclaimer: The information contained in this section may have been updated after the patient was seen, as this information can be updated by other users. 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 Lumbar facet arthropathy Lumbar disc disease with radiculopathy Lumbar spondylosis Sciatica Surgical History Hx of cystostomy Hx of wisdom tooth extraction Hx of spinal surgery Hx of hysterectomy Hx of knee surgery Family History Other Family history non-contributory Social History Smoking Status: Current every day smoker tobacco type: cigarettes packs per day: 1 second hand exposure: No alcohol intake: current alcohol intake frequency: holidays/special occasions only counseling provided: none substance use type: denies use current occupational status: employed Travel in the last 8 weeks?: None household members: spouse housing: apartment number of children: 3 current occupational exposures/hazards: No caffeine: Yes Have you lived/traveled outside US in past 30 days?: No Contact w/someone who lives/traveled outside US past 30 days?: No Exposure to someone with infectious disease in past 14 days?: No Do you have a fever (greater than 100.4 F or 38 C)?: No Have you tested positive for COVID-19?: No Exposed to someone with COVID-19 in past 14 days?: No Do you have a sore throat?: No Do you have a cough?: No Do you have any weakness?: No Are you experiencing any nausea/vomitting?: No Do you have any diarrhea?: No Are you experiencing any unusual bleeding?: No Do you have any muscle aches/pain?: No Do you have any abdominal pain?: No Are you experiencing loss of taste or smell?: No [facility] Anesthesia Checklist Patient Identification Patient Identification: Arm Band and Verbal (Name & ) Structural Data Admitted From: Home Planned Operative Procedure/s: EGD Consent for Planned Operative Procedure(s) Verified: Yes Verified Documents: Surgical Consent and History and Physical NPO Status Verified Time NPO: 00:00 Additional verifications Anesthesia Reactions: No Airway Assessment Mallampati Score:: Class II Dentition: Good Dentition Neurological Assessment Level of Consciousness: Awake, Alert and Appropriate Hx Seizures: No Anesthesia Plan Anesthesia Risk discussed: Yes Anesthesia Plan: Verified ASA Class: II Anesthesia Type: MAC
--- NOTE | 2025-02-16 13:26 | P.PCN_ITS ---
[facility] Procedure Note Date: 02/16/25 Time: 13:33 Procedure Note:: Upper Endoscopy Procedure Report: Esophagogastroduodenoscopy with cold biopsies Endoscopost: Kolby Monreal II, MD Referring Physician: Michelet Mejia MD Date of Procedure: February 16, 2025 Equipment: Olympus GIF 190 standard upper endoscope Sedation: MAC sedation Indications: Mrs. Phillip is a 54-year-old female who is here for diagnostic and surveillance endoscopy. The patient did have Moses's esophagus diagnosed in April 2019 (Jose Liriano M.D.) with biopsies at the GE junction showing intestinal metaplasia. She also had a colonoscopy at that time that showed a couple of benign polyps (mucosal prolapse polyp x 1 and hyperplastic polyp x 1). She has not had any subsequent surveillance. The patient was seen in the office recently and has had some weight loss. She also has some dyspepsia with epigastric abdominal discomfort, bloating and early satiety. She reports no nausea, heartburn reflux or dysphagia. She does have some chronic opioid- induced constipation. Procedure: Prior to the procedure, a history and physical exam was performed, and patient's medications and allergies were reviewed. The risks, benefits and alternatives of the sedation and procedure were discussed with the patient. All questions were answered and informed consent was obtained. The patient was brought to the procedure room. Patient identification and proposed procedure were verified by the physician and the nurse. The patient was placed in a left lateral decubitus position and the scope was passed under direct vision. Throughout the procedure, the patient's blood pressure, pulse, and oxygen saturations were mo nitored continuously. The upper GI endoscopy was accomplished without difficulty. The patient tolerated the procedure well. Findings: The scope was passed directly into the upper esophagus and advanced to the fourth portion of duodenum and proximal jejunum. A cold biopsy was taken from the proximal jejunum for disaccharidase assay. The proximal jejunum, post bulbar duodenum, ampulla and duodenal bulb were normal with normal mucosa and conniventes. The scope was withdrawn through a normal duodenal bulb and pylorus into the stomach. There was some bile reflux with mild linear antral gastr opathy. The body and fundus of the stomach were normal. Cold biopsies were taken from the antrum. Upon retroflexion there was a small 2 cm hiatal hernia. The scope was then withdrawn into the esophagus. There were 3 tongues of salmon-colored mucosa within the distal esophagus consistent with short segment Moses's esophagus. There was grade A reflux esophagitis (LA classification). NBI was utilized and there was no dysplastic mucosa identified. Cold biopsies were taken from the area of Moses's/salmon-colored mucosa for histologic examination. The remainder of the esophageal mucosa was normal. Impression: 1. Short segment Moses's esophagus (3 tongues of Moses's) 2. Grade A reflux esophagitis (LA classification) with 2 cm hiatal hernia 3. Bile reflux with mild antral gastropathy Plan: I will follow-up the biopsies and discussed the findings with the patient and family. I would recommend omeprazole or Voquezna therapy for her complicated GERD. She is not symptomatic with much reflux presently. I will follow-up the disaccharidase assay. I do feel that she would benefit from Relistor or Movantik for her constipation.
[2025-02-16 13:40] VITALS: BP 90/54; PULSE 69; RESP 16; TEMP 36.1; O2SAT 94
[2025-02-16 13:50] VITALS: BP 108/68; PULSE 58; RESP 16; O2SAT 96
[2025-02-16 14:00] VITALS: BP 119/86; PULSE 65; RESP 16; O2SAT 98
[2025-02-16 14:10] VITALS: BP 131/87; PULSE 60; RESP 16; O2SAT 99
[2025-02-16 14:20] VITALS: BP 144/90; PULSE 59; RESP 16; O2SAT 100
[2025-02-21 14:26] LABS: Disclaimer Notes (.); Interpretation Notes (.); Lactase 17.22 (>/= 14.0); Maltase 300.1 (>/= 110.0); Palatinase 33.39 (>/= 8.5); Reference Notes (.); Sucrase 117.99 (>/= 25.0)
== END 2025-02-16 14:20 | disposition home or self-care (01) ==
PROVIDERS: PCP Family Medicine; Visit Provider Internal Medicine Gastroenterology
PROC: 0DJ08ZZ Inspection of Upper Intestinal Tract, Via Natural or Artificial Opening Endoscopic (ICD-10-PCS; CPT 43239; principal; 2025-02-16 13:30)
DX: K21.00 Gastro-esophageal reflux disease with esophagitis, without bleeding (principal); K22.70 Barrett's esophagus without dysplasia; K31.9 Disease of stomach and duodenum, unspecified; K59.03 Drug induced constipation; K44.9 Diaphragmatic hernia without obstruction or gangrene; T40.2X5A Adverse effect of other opioids, initial encounter; K31.89 Other diseases of stomach and duodenum; K30 Functional dyspepsia; R63.4 Abnormal weight loss; F17.210 Nicotine dependence, cigarettes, uncomplicated
CPT/HCPCS: 43239; 82657; J2003; J2704; J7120

== ENCOUNTER 2025-03-04 16:35 | Emergency (ER) | payer MEDICAID, SELFPAY ==
--- OUTSIDE RECORDS SUMMARY | 2025-01-25 08:13 | XMS_ITS | Encounter Summary ---
Author [place] [address] Care Team Providers Care Bunch Maker Hand Name Role Phone Jose Wells MD Primary Care Provider [phone] Reason for Visit * Reason Comments Chest Pain L and midsternal bernard st pain intermittent x 2 days, radiates to mid- back and L shoulder. Denies cardiac history. Denies nausea, SOB. Encounter Details Date Type Department Care Team (Late st Contact Info) Description 01/25/2025 8:13 AM EDT - 01/25/2025 9:33 AM EDT [facility] [address] [place] [address] Jose Kang MD [address] [place] [id number] Acute costochondritis (Primary Dx) Discharge Disposition: Home or Self Care Social History Tobacco Use Types Packs/Day Years Used Date Smoking Tobacco: Every Day Cigarettes Smokeless Tobacco: Never Alcohol Use Standard Drinks/Week Comments No 0 (1 standard drink = 0.6 oz pur e alcohol) Comments No Sex and Gender Information Value Date Recorded Sex Assigned at Not on file Legal Sex Female 12:14 PM EDT Gender Identity Not on file Sexual Orientation Not on file documented as of this encounter Last Filed Vital Signs Vital Sign Reading Time Taken Comments Blood Pressure 156/86 01/25/2025 8:17 AM EDT Pulse 72 01/25/2025 8:30 AM EDT Temperature 36.9 C (98.4 F) 01/25/2025 8:22 AM EDT Respiratory Rate 16 01/25/2025 8:17 AM EDT Oxygen Saturation 100% 01/25/2025 8:30 AM EDT Inhaled Oxygen Concentration - - Weight - - Height - - Body Mass Index - - documented in this encounter Functional Status * Suicide Severity Rating Answer Date of Assessment Author No Risk 01/25/2025 8:21 AM EDT Ximena Mendoza RN * [place] Suicide Severity Rating Scale (Q shift for moderate and high) Question Answer Date of Assessment Author 1. In the past month, have you wished you were or wished you could go to sleep and not wake up? 0 01/25/2025 8:21 AM EDT Ximena Mendoza RN 2. In the past month, have you actually had any thoughts of killing yourself? (If no, skip to question 6) 0 01/25/2025 8:21 AM EDT Ximena Mendoza RN 6. Have you ever done anything, started to do anything, or prepared to do anything to end your life? 0 01/25/2025 8:21 AM EDT Asim Mendoza RN documented as of this encounter Discharge Instructions * Discharge Instructions* Jose Kang MD - 01/25/2025 9:08 AM EDT Local moist heating pad to chest wall for comfort measure. Meds as directed. Quit smoking. Return for intractable pain, shortness of breath, syncope. Patient discharged in stable condition. Return for any worsening of symptoms or any other problems or concerns. * Attachments The following attachments cannot be sent through Care Everywhere. * Costochondritis ([place]) documented in this encounter Medications at Time of Discharge hydrocodone-aceta minophen (NORCO) 10-325 mg per tablet Take 1 Tab by mouth every 6 hours as needed. lidocaine (LIDODERM) 5 %(700 mg/patch) patch Place onto the skin once. morphine (MSIR) 15 mg tablet Take 15 mg by mouth 3 times daily. naproxen (NAPROSYN) 500 mg Oral Tablet Take 1 Tablet by mouth 2 times daily as needed for Pain for up to 30 days. 30 Tablet 01/25/2025 02/24/2025 documented as of this encounter Ordered Prescriptions Prescription Sig Dispense Quantity Refills Last Filled Start Date End Date naproxen (NAPROSYN) 500 mg Oral Tablet Take 1 Tablet by mouth 2 times daily as needed for Pain for up to 30 days. 30 Tablet 01/25/2025 02/24/2025 documented in this encounter Discharge Disposition Disposition Code Departure Means Destination Comment s Home or Self Snf D/C to home in care of self. Verbalizing understanding of instructions and follow up care documented in this encounter ED Notes * Jose Kang MD - 01/25/2025 8:08 AM EDT Chief Complaint Patient presents with Chest Pain L and midsternal chest pain intermittent x 2 days, radiates to mid-back and L shoulder. Denies cardiac history. Denies nausea, SOB. 54-year-old white female past medical history significant for anxiety, chronic back pain, presents to the ED complaining of a 2-day history of intermittent sharp left sternal area chest pain that at times radiates to her left shoulder and through to her back. She reports increased pain with deep inspiration. No specific recall of trauma, injury, overuse. Denies associated shortness of breath, nausea, vomiting, diaphoresis, vertigo, syncope, cough. No other problems or concerns were identified Past medical history--anxiety, depression, chronic back pain Social history-positive for smoking, denies alcohol use Family history-no first-degree family members with early onset CAD or sudden cardiac Chest Pain Associated symptoms: no abdominal pain, no cough, no diaphoresis, no fever, no nausea, no palpitations, no shortness of breath and no vomiting Patient History Allergies Allergen Reactions Prednisone Other (See Comments) Joint pain Home Medications: Prior to Admission medications Medication Sig Start Date End Date Taking? Authorizing Provider hydrocodone-acetaminophen (NORCO) 10-325 mg per tablet Take 1 Tab by mouth every 6 hours as needed. Patient not taking: Reported on 01/25/2025 Provider, Historical lidocaine (LIDODERM) 5 %(700 mg/patch) patch Place onto the skin once. Patient not taking: Reported on 01/25/2025 Provider, Historical morphine (MSIR) 15 mg tablet Take 15 mg by mouth 3 times daily. Patient not taking: Reported on 01/25/2025 Provider, Historical Past Medical History: Past Medical History: Diagnosis Date Anxiety associated with depression Chronic back pain Social History: reports that she has been smoking cigarettes. She has never used smokeless tobacco.She reports that she does not drink alcohol. E-Cigarettes (such as Vapes or Juul) Family History: No family history on file. Surgical History: Past Surgical History: Procedure Laterality Date KNEE SURGERY 2000 Right Patella Realignment TONSILLECTOMY AND ADENOIDECTOMY TUBAL LIGATION Review of Systems Review of Systems Constitutional: Negative for chills, diaphoresis and fever. HENT: Negative. Eyes: Negative. Respiratory: Negative for cough and shortness of breath. Cardiovascular: Positive for chest pain. Negative for palpitations and leg swelling. Gastrointestinal: Negative for abdominal pain, diarrhea, nausea and vomiting. Genitourinary: Negative for flank pain. Musculoskeletal: Negative for neck pain. Skin: Negative for rash. Neurological: Negative. All other systems reviewed and are negative. Physical Exam Blood pressure 156/86, pulse 82, resp. rate 16, last menstrual period 12/28/2012, SpO2 100%. Physical Exam Vitals and nursing note reviewed. Constitutional: General: She is not in acute distress. Appearance: She is well-developed. Comments: Well-nourished adult white female in no apparent distress HENT: Head: Normocephalic and atraumatic. Eyes: Conjunctiva/sclera: Conjunctivae normal. Pupils: Pupils are equal, round, and reactive to light. Cardiovascular: Rate and Rhythm: Normal rate and regular rhythm. Pulses: Radial pulses are 2+ on the right side and 2+ on the left side. Dorsalis pedis pulses are 2+ on the right side and 2+ on the left side. Heart sounds: Normal heart sounds. No murmur heard. No friction rub. No gallop. Pulmonary: Effort: Pulmonary effort is normal. Breath sounds: Normal breath sounds. Chest: Chest wall: Tenderness present. Comments: Tenderness to palpation along the left mid to lower sternal border that reproduces the patient's previously described pain. No crepitus or subcu air Abdominal: General: Bowel sounds are normal. Palpations: Abdomen is soft. Tenderness: There is no abdominal tenderness. Musculoskeletal: General: No tenderness. Cervical back: Normal range of motion and neck supple. Right lower leg: No tenderness. No edema. Left lower leg: No tenderness. No edema. Skin: General: Skin is warm and dry. Capillary Refill: Capillary refill takes less than 2 seconds. Neurological: General: No focal deficit present. Mental Status: She is alert and oriented to person, place, and time. Psychiatric: Mood and Affect: Mood normal. Procedures EK EKG 12 LEAD ED Interpretation by Jose Kang MD (01/26 824) EKG shows sinus rhythm at 86 bpm. Normal axis. Normal VA, QRS, QT intervals. No evidence of acute injury or ischemia Radiology/EKG/Labs: Results for orders placed or performed during the hospital encounter of 01/25/25 XR CHEST PA AND LATERAL Narrative PA AND LATERAL CHEST X-RAY, 01/25/2025 9:01 AM CLINICAL HISTORY: -cp COMPARISON: None. PROCEDURE COMMENTS: Frontal and lateral views of the chest. FINDINGS: Heart and mediastinal contours within normal limits for technique. No active failure, pneumonia, or visible effusion. No visible pneumothorax. Impression No acute finding. - Note: Radiology results need to be interpreted within a comprehensive clinical context. If you have questions about the radiology report, please contact the office of the ordering clinician. CBC WITH DIFF Result Value Ref Range WBC 10.8 (H) 3.7 - 10.3 x10(3)/mcL RBC 4.41 3.90 - 5.20 x10(6)/mcL Hgb 13.8 11.2 - 15.7 g/dL Hct 42.3 34.0 - 45.0 % MCV 95.9 80.0 - 100.0 fL MCH 31.3 26.0 - 34.0 pg MCHC 32.6 30.7 - 35.5 g/dL RDW 13.0 <=14.9 % Platelet 370 (H) 155 - 369 x10(3)/mcL MPV 9.4 8.8 - 12.5 fL Neut Percent 72.1 % Imm Gran% 0.1 % Lymph Percent 19.6 % [place]y Percent 5.1 % Eos Percent 2.4 % Baso Percent 0.7 % Neut # 7.7 (H) 1.6 - 6.1 x10(3)/mcL IMMGRAN# 0.0 0.0 - 0.1 x10(3)/mcL Lymph # 2.1 1.2 - 3.9 x10(3)/mcL S[place]y # 0.6 0.3 - 0.9 x10(3)/mcL Eos# 0.3 0.0 - 0.5 x10(3)/mcL Baso # 0.1 0.0 - 0.1 x10(3)/mcL BASIC METABOLIC PANEL Result Value Ref Range Sodium 138 136 - 145 mmol/L Potassium 4.1 3.5 - 5.0 mmol/L Chloride 101 98 - 107 mmol/L Total CO2 24 22 - 29 mmol/L Anion Gap 13 7 - 16 mmol/L Calcium 9.4 8.6 - 10.4 mg/dL Glucose Lvl 143 (H) 70 - 99 mg/dL BUN 11 6 - 20 mg/dL Creatinine 0.80 0.51 - 1.30 mg/dL eGFR (CKD-EPIcr 2020) 88 >=60 mL/min/1.73 m2 TROPONIN-T HIGH SENSITIVITY BASELINE W/ REFLEX Result Value Ref Range lq-eKdojjwwk-O 7 <14 ng/L Narrative Ingestion of pritesh doses of biotin (>5 mg/day) taken within 8 hours of drawing blood sample can interfere with this immunoassay test. D-DIMER Result Value Ref Range D-Dimer 466 <=500 ng/mL FEU Narrative For patients between the ages of 50 - 75, an age-adjusted D-Dimer cut-off in combination with non-high clinical probability may be considered for the exclusion of venous thromboembolism (calculation = age x 10). GURINDER Moore, et al. Manjula Manager [place] Med. 2017;166(5):361-363 SANDY Garcia, et al. Manj[facility] [place] Med. 2015;(163):701-711. Hernando M, et al. SAMUEL. 2014;(11):4267-7352. EK EKG 12 LEAD Impression [facility] Test Date: 2025-01-25 Pat Name: PATEL VIERA Department: [facility] Room: Gender: Female Track Repair Person: Attila : 1970 Requested By: [facility] Order Number: [id number] Adryan MD: Vicente Oliva MD Measurements Intervals [place] Rate: 86 P: 60 VA: 153 QRS: 6 QRSD: 89 T: 50 QT: 361 QTc: 432 Interpretive Statements SINUS RHYTHM POSSIBLE LEFT ATRIAL ENLARGEMENT Electronically Signed On 01-25-2025 08:23:04 EDT by Vicente Oliva MD ED Course: Appropriate laboratory and radiology studies reviewed Patient was seen and evaluated. Following her initial evaluation, diagnostic studies were obtained and the patient was given 80 mg of Depo-Medrol IM. She was resting quietly in no apparent distress. Diagnostic studies as noted above. Patient presents with a 2-day history of intermittent sharp left sternal area chest pain that is reproducible with palpation over sternal border. No associated shortness of breath, diaphoresis, nausea, vomiting. My clinical concern that her symptoms are related to ACS, pulmonary embolism, aortic dissection, myocarditis/pericarditis, is low. I discussed the diagnosis of costochondritis with the patient as well as plans for disposition home with instructions on symptomatic treatment, prescription for Naprosyn, and emphasis to quit smoking. Patient agrees with this plan of care ED Clinical Impression: #1 acute costochondritis Critical Care time MDM Medical Decision Making Amount and/or Complexity of Data Reviewed Labs: ordered. Radiology: ordered. Risk Prescription drug management. Independent interpretation of EKG History obtained by patient Care of patient discussed with nursing team and nursing documentation reviewed I reviewed diagnosis and treatment plan with the patient/family Social determinants of health that may affect care, such as smoking, were considered in the treatment plan I reviewed the EMR for recent diagnostic studies and provider notes I discussed return to ED indications and specific signs/symptoms that need immediate attention I prescribed appropriate medications/treatment for suspected diagnosis and reviewed precautions of using such medications [facility] report reviewed as indicated Condition at Discharge/Transfer from Department: Stable This chart was completed using voice recognition technology and may contain unintended errors Jose Kang MD 01/25/25 0918 documented in this encounter Plan of Treatment Not on file documented as of this encounter Procedures Procedure Name Priority Date/Time Associated Diagnosis Comments SCANNED EKG 01/26/2025 8:42 AM EDT XR CHEST PA AND LATERAL STAT 01/25/2025 9:01 AM EDT TROPONIN-T HIGH SENSITIVITY BASELINE W/ REFLEX STAT 01/25/2025 8:28 AM EDT D-DIMER STAT 01/25/2025 8:28 AM EDT CBC WITH DIFF STAT 01/25/2025 8:28 AM EDT BASIC METABOLIC PANEL STAT 01/25/2025 8:28 AM EDT EK EKG 12 LEAD STAT 01/25/2025 8:10 AM EDT documented in this encounter Results * SCANNED EKG (01/26/2025 8:42 AM EDT) Anatomical Region Laterality Modality Other 01/26/2025 8:42 AM EDT us Unknown Provider IMG ECG ORDERABLES Final Result * XR CHEST PA AND LATERAL (01/25/2025 9:01 AM EDT) Anatomical Region Laterality Modality Chest Radiographic Fay ging 01/25/2025 9:01 AM EDT Impressions 01/25/2025 9:13 AM EDT No acute finding. - Note: Radiology results need to be interpreted within a comprehensive clinical context. If you have questions about the radiology report, please contact the office of the ordering clinician. Narrative 01/25/2025 9:13 AM EDT PA AND LATERAL CHEST X-RAY, 01/25/2025 9:01 AM CLINICAL HISTORY: -cp COMPARISON: None. PROCEDURE COMMENTS: Frontal and lateral views of the chest. FINDINGS: Heart and mediastinal contours within normal limits for technique. No active failure, pneumonia, or visible effusion. No visible pneumothorax. Procedure Note Salvador Ramirez MD - 01/25/2025 PA AND LATERAL CHEST X-RAY, 01/25/2025 9:01 AM CLINICAL HISTORY: -cp COMPARISON: None. PROCEDURE COMMENTS: Frontal and lateral views of the chest. FINDINGS: Heart and mediastinal contours within normal limits for technique. Noactive failure, pneumonia, or visible effusion. No visible pneumothorax. IMPRESSION: No acute finding. - Note: Radiology results need to be interpreted within a comprehensiveclinical context. If you have questions about the radiology report, please contactthe office of the ordering clinician. us Jose Kang MD IMG DIAGNOSTIC IMAGING ORDE JUAN CARLOS Final Result * D-DIMER (01/25/2025 8:28 AM EDT) D-Dimer 466 <=500 ng/mL FEU 01/25/2025 8:44 AM EDT [facility] Comment:This is an automated latex enhanced immunoassay for the quantitative determination of D-Dimer that may be used, in conjunction with a clinical pretest probability assessment, to exclude venous thromboembolism in patients suspected of deep venous thrombosis (DVT) and pulmonary embolism (PE). The cutoff for exclusion of DVT and PE is 500 ng/mL Fibrinogen Equivalent Units (FEU). Elevated D-Dimer levels may be associated with PE, DVT, disseminated intravascular coagulation, recent surgery, recent bleeding, , malignancy, and inflammation. Blood VENOUS BLOOD / Unknown Venipuncture / Unknown 01/25/2025 8:28 AM EDT 01/25/2025 8:30 AM EDT Narrative [facility] - 01/25/2025 8:44 AM EDT For patients between the ages of 50 - 75, an age-adjusted D-Dimer cut-off in combination with non-high clinical probability may be considered for the exclusion of venous thromboembolism (calculation = age x 10). GURINDER Moore, et al. Manj[facility] [place] Med. 2017;166(5):361-363 SANDY Garcia, et al. [facility] [place] [facility]. 2015;(163):701-711. Hernando M, et al. SAMUEL. 2014;(11):0457-5960. us Jose Kang MD HEMATOLOGY ORDERABLES Final Result [facility] [address] [place] [address] * TROPONIN-T HIGH SENSITIVITY BASELINE W/ REFLEX (01/25/2025 8:28 AM EDT) ms-eFlnaggez-V 7 <14 ng/L 01/25/2025 8:50 AM EDT [facility] Blood VENOUS BLOOD / Unknown Venipuncture / Unknown 01/25/2025 8:28 AM EDT 01/25/2025 8:30 AM EDT Narrative [facility] - 01/25/2025 8:50 AM EDT Ingestion of pritesh doses of biotin (>5 mg/day) taken within 8 hours of drawing blood sample can interfere with this immunoassay test. us Jose Kang MD CHEMISTRY ORDERABLES Final Result [facility] [address] [place], [place] [id number] * (ABNORMAL) BASIC METABOLIC PANEL (01/25/2025 8:28 AM EDT) Sodium 138 136 - 145 mmol/L 01/25/2025 8:50 AM T [facility] Potassium 4.1 3.5 - 5.0 mmol/L 01/25/2025 8:50 AM T [facility] Chloride 101 98 - 107 mmol/L 01/25/2025 8:50 AM EDT [facility] Total CO2 24 22 - 29 mmol/L 01/25/2025 8:50 AM T [facility] Anion Gap 13 7 - 16 mmol/L 01/25/2025 8:50 AM T [facility] Calcium 9.4 8.6 - 10.4 mg/dL 01/25/2025 8:50 AM [facility] Glucose Lvl 143(H) 70 - 99 mg/dL 01/25/2025 8:50 AM T [facility] BUN 11 6 - 20 mg/dL 01/25/2025 8:50 AM T [facility] Creatinine 0.80 0.51 - 1.30 mg/dL 01/25/2025 8:50 AM [facility] eGFR (CKD-EPIcr 2020) 88 >=60 mL/min/1.7 3 m2 01/25/2025 8:50 AM T [facility] Comment:Estimated GFR was ca lculated using the CKD-EPIcr (2020) equation refit without race. The equation is recommended by the National Kidney Foundation - [place] [employer] of Nephrology Task Force. Blood VENOUS BLOOD / Unknown Venipuncture / Unknown 01/25/2025 8:28 AM EDT 01/25/2025 8:30 AM EDT us Jose Kang MD CHEMISTRY ORDERABLES Final Result [facility] [address] [place] [address] * (ABNORMAL) CBC WITH DIFF (01/25/2025 8:28 AM EDT) WBC 10.8(H) 3.7 - 10.3 x10(3)/mcL 01/25/2025 8:33 AM EDT [facility] RBC 4.41 3.90 - 5.20 x10(6)/mcL 01/25/2025 8:33 AM EDT [facility] Hgb 13.8 11.2 - 15.7 g/dL 01/25/2025 8:33 AM EDT [facility] Hct 42.3 34.0 - 45.0 % 01/25/2025 8:33 AM EDT [facility] MCV 95.9 80.0 - 100.0 fL 01/25/2025 8:33 AM EDT [facility] MCH 31.3 26.0 - 34.0 pg 01/25/2025 8:33 AM EDT [facility] MCHC 32.6 30.7 - 35.5 g/dL 01/25/2025 8:33 AM EDT [facility] RDW 13.0 <=14.9 % 01/25/2025 8:33 AM EDT [facility] Platelet 370(H) 155 - 369 x10(3)/mcL 01/25/2025 8:33 AM EDT [facility] MPV 9.4 8.8 - 12.5 fL 01/25/2025 8:33 AM EDT [facility] Neut Percent 72.1 % 01/25/2025 8:33 AM EDT [facility] Comment:Neutrophils equals s egs plus bands Imm Gran% 0.1 % 01/25/2025 8:33 AM EDT [facility] Comment:Automated count of m etamyelocytes, myelocytes and promyelocytes. Lymph Percent 19.6 % 01/25/2025 8:33 AM EDT [facility] Sibley Percent 5.1 % 01/25/2025 8:33 AM EDT [facility] Eos Percent 2.4 % 01/25/2025 8:33 AM EDT [facility] Baso Percent 0.7 % 01/25/2025 8:33 AM EDT [facility] Neut # 7.7(H) 1.6 - 6.1 x10(3)/[facility] 01/25/2025 8:33 AM EDT [facility] Comment:Neutrophils equals s egs plus bands IMMGRAN# 0.0 0.0 - 0.1 x10(3)/[facility] 01/25/2025 8:33 AM EDT [facility] Comment:Automated count of m etamyelocytes, myelocytes and promyelocytes. An absolute IG <0.1 is reported as 0.0. Lymph # 2.1 1.2 - 3.9 x10(3)/[facility] 01/25/2025 8:33 AM EDT [facility] Sibley # 0.6 0.3 - 0.9 x10(3)/[facility] 01/25/2025 8:33 AM EDT [facility] Eos# 0.3 0.0 - 0.5 x10(3)/[facility] 01/25/2025 8:33 AM EDT [facility] Baso # 0.1 0.0 - 0.1 x10(3)/[facility] 01/25/2025 8:33 AM EDT [facility] Blood VENOUS BLOOD / Unknown Venipuncture / Unknown 01/25/2025 8:28 AM EDT 01/25/2025 8:30 AM EDT us Jose Kang MD HEMATOLOGY ORDERABLES Final Result [facility] [address] [place] [address] * EK EKG 12 LEAD (01/25/2025 8:10 AM EDT) Anatomical Region Laterality Modality Electrocardiogra phy 01/25/2025 8:16 AM EDT Impressions 01/25/2025 8:23 AM EDT [facility] Test Date: 2025-01-25 Pat Name: PATEL VIERA Department: [facility] Room: Gender: Female Track Repair Person: Attila : 1970 Requested By: [facility] Order Number: [id number] Reading MD: Vicente Oliva MD Measurements Intervals [place] Rate: 86 P: 60 VA: 153 QRS: 6 QRSD: 89 T: 50 QT: 361 QTc: 432 Interpretive Statements SINUS RHYTHM POSSIBLE LEFT ATRIAL ENLARGEMENT Electronically Signed On 01-25-2025 08:23:04 EDT by Vicente Oliva MD Narrative Procedure Note Vicente Oliva MD - 01/25/[address] [facility] Test Date: 2025-01-25 Pat Name: PATEL VIERA Department: [facility] Room: Gender: Female Track Repair Person: Attila : 1970 Requested By: [facility] Order Number: [id number] Reading MD: Vicente Oliva MD Measurements Intervals [place] Rate: 86 P: 60 VA: 153 QRS: 6 QRSD: 89 T: 50 QT: 361 QTc: 432 Interpretive Statements SINUS RHYTHM POSSIBLE LEFT ATRIAL ENLARGEMENT Electronically Signed On 01-25-2025 08:23:04 EDT by Vicente Oliva MD Jose Kang MD IMG ECG ORDERABLES Final Re sult documented in this encounter Visit Diagnoses Diagnosis Acute costochondritis- Primary Tietze's disease documented in this encounter Administered Medications Inactive Administered Medications - up to 1 most recent administrations Medication Order MAR Action Action Date Dose Rate Site methylPREDNISolone acetate (DEPO-Medrol) injection 80 mg 80 mg, Intramuscular, ONCE, 1 dose, On Thu01/25/25 at 0830 Given 01/25/2025 8:34 AM EDT 80 mg Left upper gluteus documented in this encounter Active and Recently Administered Medications Times are shown in EDT. Scheduled Medication Order 01/23/2025 01/24/2025 01/25/2025 methylPREDNISolone acetate (DEPO-Medrol) injection 80 mg (COMPLETED) 80 mg, Intramuscular, ONCE, 1 dose, On Thu01/25/25 at 0830 0834 (Given - Provid er: Ximena Mendoza RN) documented in this encounter Orders Medications Ordered That Fredy ht Not Have Been Administered Count Last Ordered Date First Ordered Date methylPREDNISolone acetate ( DEPO-Medrol) injection 80 mg 1 01/25/2025 documented in this encounter Care Teams Bunch Maker Hand Relationship Specialty Start Date End Date Jose Wells MD [address] [facility] [place] [id number] PCP - General Emergency Medicine 01/05/15 documented as of this encounter
[2025-03-04 16:47] VITALS: BP 162/99; PULSE 81; RESP 16; TEMP 36.9; O2SAT 99; BMI 26.6
--- NOTE | 2025-03-04 16:51 | XR_ITS ---
PROCEDURE INFORMATION: Exam: XR Right Hip Exam date and time: 03/04/2025 5:21 PM Age: 54 years old Clinical indication: Hip pain; Right hip TECHNIQUE: Imaging protocol: Radiologic exam of the right hip. Views: 2 or 3 views hip with pelvis when performed. COMPARISON: MR LUMBAR SPINE WO CON 11/09/2020 10:32 AM FINDINGS: Bones/joints: No acute fracture or malalignment. Soft tissues: Unremarkable. IMPRESSION: No acute osseous findings.
--- OUTSIDE RECORDS SUMMARY | 2025-03-04 16:53 | XMS_ITS | Clinical Summary ---
Author Organization [facility] are Address [address] [place] [address] Phone Care Team Providers Care Interpretative Dancer Name Role Phone Evelyne Kuhn MD Primary Care Physician [ ] Conditions or Problems No information available. Medications No information available. Medications Administered No information available. Allergies, Adverse Reactions, Alerts No information available. Results No information available. Plan of Care No information available. Procedures No information available. Vital Signs No information available. Immunizations No information available. Advance Directives No information available.
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
--- OUTSIDE RECORDS SUMMARY | 2025-03-04 16:53 | XMS_ITS | Data Portability ---
Author Organization [facility] Address [address] [place] [address] Care Team Providers Care Fleet Director Name Role Phone SUKHDEEP OLSEN Primary Care Provider [phone] ROXY MULLEN Referring Provider Assessment Encounter Date Assessment Date Assessment LastModified by Organization Details LastModified Time 04/27/2019 04/27/2019 48-year-old female Seen today for follow-up of chronic low back pain. Pain somewhat improved from initial visit in regards to lower extremity pain. States she is having more axial low back pain vs radicular pain. Describes a strong aching sensation across the low back which at times causes some muscle spasm. 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 Conditions require her to lift, bend, stoop, and pull objects. She is also asked to wear protective gear to enter the cooler. She has a history of pain management and past including spinal cord stimulator placement through Dr. Wei and Dr. Bliss. She reports that this was not helpful and she had the device removed. She did see a neurosurgeon who reviewed her lumbar MRI and reported that she is not a surgical candidate. Lumbar MRI shows some bulging disc at L5-S1 along with some mild lumbar facet arthritis of the low spine. She reports prior failure to multiple medications including gabapentin and Lyrica along with numerous muscle relaxants and NSAIDs. She has been taking Tylenol #3 for managed relief but with return to work and 10-12 hour work days she is having difficulty maintaining relief found when she was not working. Says at best she finds 50% relief for up to 4 hours some days only 30% relief with second and third dose as pain is more intense. Denies side effect. I will allow QID for one month only with the anticipation of proceeding with interventional therapy and then returning to TID frequency. Patient was made aware that this is a short term consideration only and we do not intend to continue QID frequency. As patients pain is now axial with no radicular component I will submit for BRANDON LMBB L3-5. She will return post procedure for further evaluation and if results favorable plan to proceed to RFA. [email or web address] Not available 04/27/2019 16:56:52 06/01/2019 06/01/2019 48-year-old female follow up for chronic low back pain. States pain is comparable to last visit but she is having more difficulty maintaining her work duties. She will have an interview for a position that may cause less physical strain for her. Pain continues to be across the low back. Will have periods of muscle cramping and spasm when pain more severe. Difficulty with standing, walking, bending, lifting. She has a history of pain management and past including spinal cord stimulator placement through Dr. Wei and Dr. Bliss. She reports that this was not helpful and she had the device removed. She did see a neurosurgeon who reviewed her lumbar MRI and reported that she is not a surgical candidate. Lumbar MRI shows some bulging disc at L5-S1 along with some mild lumbar facet arthritis of the low spine. Submitted for LMBB to address axial low back pain as patient was already receiving interventional therapy to treat her condition with positive results. Insurance denied the injection stating she must again complete physical or chiropractic therapy as it has been >1 year since her last session. She is now established and has had one visit. Says therapy drastically increases her pain. She reports prior failure to multiple medications including gabapentin and Lyrica along with numerous muscle relaxants and NSAIDs. She has been taking Tylenol #3 QID for managed relief but with return to work and 10-12 hour work days she is having difficulty maintaining relief found when she was not working. Says at best she finds 50% relief for up to 4 hours. Will continue current regimen while patient participates in physical therapy. Plan to resubmit for LMBB once therapy complete and notes received if exam and symptoms still warrant. Discussed at length with patient that the goal is to proceed with interventional management to decrease use of narcotic pain medications. She will return in one month fur follow up. [email or web address] Not available 06/01/2019 12:27:37 11/30/2023 11/30/2023 BRIEF PAIN HISTORY: 53-year-old female new patient referral for chronic neck and low back pain. Has not been seen in my office since May 2019. At that time she was undergoing treatment with Tylenol 3 along with some injection therapy. In May 2019, she was lost to follow-up. States that she injured her shoulder and started following up with orthopedics for this issue. She then started getting medication through her PCP and was seeing various other physicians for other issues and stopped undergoing treatment for her low back. Over the course of the years she has had her medication raise a significant amount up to a MD of 60. Was getting this through her PCP before that provider was apparently elected for the practice. The new provider would not take care of her at this amount with the other medications that she is currently taking. After review of her records, I agreed to see her back but I would only place her back on her original Tylenol 3 dosing. She is agreeable and has scheduled today for reevaluation of her lumbar pain. SX: She reports pain across low back with some referred to the hips bilaterally. States the pain is a constant aching, burning, throbbing, dull is aggravated with activity including standing, walking, bending, lifting, twisting, pushing, pulling. Worse with cold weather. Denies any current numbness or weakness to legs. Denies any bowel or bladder incontinence. PMHx: Anxiety Prior PM: [] Smoker: 1 PACK PER DAY Employed: [employer] Diabetic: DENIES Anticoagulated: DENIES PERTINENT IMAGING: MRI lumbar spine without contrast October 2020: L1-2: Unremarkable L2-3: Unremarkable L3-4: Minimal disc bulging with mild facet ligament hypertrophy. L4-5: Minimal anterior listhesis of L4. Grade 1. Mild ligamentum flavum hypertrophy. Mild facet hypertrophy. L5-S1: Degenerative disease with facet ligamentum flavum hypertrophy. OTHER TREATMENTS: Conservative: 6 weeks physical therapy previously without improvement. No help from acupuncture. No help from home exercise therapy. Surgical: History of prior SCS placement and removal INJECTION HX: Previous epidural injections with improvement CURRENT ANALGESICS: Tylenol 3 3 times daily PRIOR ANALGESICS: Percocet through previous PCP COMPLIANCE: FELI/OARS/INSPE CT was reviewed and appropriate Preliminary UDS positive for oxycodone and unprescribed benzodiazepine I will send this for LCMS confirmation for a baseline since the patient is new to the practice. Based on above screening, co-morbidities, MED, and my clinical judgement: I consider this patient to be moderate risk for abuse/diversion. ORT: 0 PHQ-9: 3 ANNEL: 33 MDM: Reviewed imaging the patient we discussed treatment options. She has axial pain. She has facet changes on imaging. We discussed injection therapy and she is agreeable move forward. History and exam are consistent with low back pain from facet arthritis, supported by imaging. Pain is AXIAL in nature without any radicular component. Symptoms are chronic having been present for >3 months, described by the patient as moderate to severe. Symptoms have not responded to >3 months conservative therapy including but not limited to physical therapy, NSAID medications. Symptoms are affecting patient's ability to perform ADLs. I am going to schedule the patient for a bilateral diagnostic lumbar medial nerve branch block L3 to 5 x 2 to be followed by radiofrequency ablation as appropriate. Not she has return to this practice, I am going to continue her on her Tylenol 3. She is on multiple sedating medications with so I have discussed with her. She is also positive today for benzodiazepine medication which is not prescribed. We will see what the confirmation shows. PLAN: 1. Medication management as discussed above. 2. Order placed for bilateral diagnostic medial branch block L3 to 5 x 2 to be followed by RFA as appropriate. Discussed new orders/changes with patient. Patient expressed agreement and full understanding of above plan. All questions answered in full. Follow-up 30 days. Much of this encounter is an electronic wheelman/tra nslation of spoken language to printed text. The electronic translation of spoken language may permit erroneous or at times nonsensical words of phrases to be inadvertently transcribed; Although I have reviewed the note for such errors, some may still exist. [email or web address] Not available 11/30/2023 14:58:58 Plan of Treatment Reminders Order Date Submit Date Provider Last Modified By Organization Details Last Modified Time Details Appointments None shaka parikh Lab drug screen, urine 2023 024 [facility], [facility], [address] [place] [address], [address], 03/21/202 4 11:27:11 drug screen, urine 2018 019 rbarone [place], [address], [address], [place], [address], 9 09:46:45 opiates , quantit ative, urine 2018 019 [facility], [facility], [address] [place] [address], [address], 9 11:15:42 drug screen, urine 2018 019 rbarone [place], [address], [address], [place], [address], 9 17:19:58 Referral None recorde d. Procedures medial branch block, lumbar (PROC) - DIAGNOS TIC BILATER AL LMBB L3-L5, #1 [facility], [address], [address], [place], [address], 4 08:22:15 medial branch block, lumbar (PROC) 2018 019 je [facility], [address], [address], [place], [address], 9 08:53:05 epidura l steroid injecti on, lumbar interla minar (PROC) 2018 019 marianna [facility], [address], [address], [place], [address], 9 14:29:14 Surgeries None recorde d. Imaging None recorde d. Medication Orders acetami nophen 300 mg-code ine 30 mg tablet 2023 024 [facility] #[id number], [address] [place], [address], 4 15:00:09 Tylenol -Codein e #3 300 mg-30 mg tablet 2018 019 [facility] [id number], [address] [place], [address], 4 13:55:38 Tylenol -Codein e #3 300 mg-30 mg tablet 2018 019 [facility] #[id number], [address] [place] [address], [address], 4 13:55:38 Patient TargetsNo targets recorded. Patient InstructionsNo instructions recorded. Reason for Referral None Reported. Results Created Date Observation Date Name Description Value Unit Range Abnormal Flag Note LastModifiedBy Organization Detail LastModifiedTime 06/01/20 19 06/01/2019 drug scree n, urine THC: negati ve Not Available [facility] [address], [place], [address], 06/01/2019 07:35:17 06/01/20 19 06/01/2019 drug scree n, urine Buprenorphin e: negati ve Not Available [place] [address], [place], [address], 06/01/2019 07:35:17 06/01/20 19 06/01/2019 drug scree n, urine TCA: positi ve Not Available [place] [address], [place], [address], 06/01/2019 07:35:17 06/01/20 19 06/01/2019 drug scree n, urine Barbiturates : negati ve Not Available [place] [address], [place], [address], 06/01/2019 07:35:17 06/01/20 19 06/01/2019 drug scree n, urine Benzodiazepi demetria: positi ve Not Available [place] [address], [place], [address], 06/01/2019 07:35:17 06/01/20 19 06/01/2019 drug scree n, urine Methadone: negati ve Not Available [place] [address], [place], [address], 06/01/2019 07:35:17 06/01/20 19 06/01/2019 drug scree n, urine Amphetamines : positi ve Not Available [place] [address], [place], [address], 06/01/2019 07:35:17 06/01/20 19 06/01/2019 drug scree n, urine Morphine/Opi ates: positi ve Not Available [facility] [place] [address], [place], [address], 06/01/2019 07:35:17 06/01/20 19 06/01/2019 drug scree n, urine Oxycodone: negati ve Not Available [place] [address], [place], [address], 06/01/2019 07:35:17 06/01/20 19 06/01/2019 drug scree n, urine MDMA: negati ve Not Available [place] [address], [place], [address], 06/01/2019 07:35:17 06/01/20 19 06/01/2019 drug scree n, urine Cocaine: negati ve Not Available [place] [address], [place], [address], 06/01/2019 07:35:17 06/01/20 19 06/01/2019 drug scree n, urine Methamphetam ine: negati ve Not Available [place] [address], [place], [address], 06/01/2019 07:35:17 04/27/20 19 04/27/2019 drug scree n, urine THC: negati ve Not Available [place] [address], [place], [address], 04/27/2019 10:52:08 04/27/20 19 04/27/2019 drug scree n, urine Buprenorphin e: negati ve Not Available [place] [address], [place], [address], 04/27/2019 10:52:08 04/27/20 19 04/27/2019 drug scree n, urine TCA: negati ve Not Available [facility] [address], [place], [address], 04/27/2019 10:52:08 04/27/20 19 04/27/2019 drug scree n, urine Barbiturates : negati ve Not Available [facility] [place] [address], [place], [address], 04/27/2019 10:52:08 04/27/20 19 04/27/2019 drug scree n, urine Benzodiazepi demetria: positi ve Not Available [facility] [address], [place], [address], 04/27/2019 10:52:08 04/27/20 19 04/27/2019 drug scree n, urine Methadone: negati ve Not Available [facility] [address], [place], [address], 04/27/2019 10:52:08 04/27/2004/27/2019 drug scree n, urine Amphetamines : positi ve Not Available [facility] [address], [place], [address], 04/27/2019 10:52:08 04/27/20 19 04/27/2019 drug scree n, urine Morphine/Opi ates: positi ve Not Available [facility] [place] [address], [place], [address], 04/27/2019 10:52:08 04/27/20 19 04/27/2019 drug scree n, urine Oxycodone: negati ve Not Available [facility] [place] [address], [place], [address], 04/27/2019 10:52:08 04/27/20 19 04/27/2019 drug scree n, urine MDMA: negati ve Not Available [facility] [address], [place], [address], 04/27/2019 10:52:08 04/27/20 19 04/27/2019 drug scree n, urine Cocaine: negati ve Not Available [facility] [place] [address], [place], [address], 04/27/2019 10:52:08 04/27/20 19 04/27/2019 drug scree n, urine Methamphetam ine: negati ve Not Available [facility] [address], [place], [address], 04/27/2019 10:52:08 02/24/2002/23/2019 drug scree n, urine THC: negati ve Not Available [facility] [place] [address], [place], [address], 02/23/2019 15:44:19 02/24/2002/23/2019 drug scree n, urine Buprenorphin e: negati ve Not Available [facility] [address], [place], [address], 02/23/2019 15:44:19 02/24/20 19 02/23/2019 drug scree n, urine TCA: negati ve Not Available [facility] [place] [address], [place], [address], 02/23/2019 15:44:19 02/24/2002/23/2019 drug scree n, urine Barbiturates : negati ve Not Available [place] [address], [place], [address], 02/23/2019 15:44:19 02/24/2002/23/2019 drug scree n, urine Benzodiazepi demetria: positi ve Not Available [place] [address], [place], [address], 02/23/2019 15:44:19 02/24/2002/23/2019 drug scree n, urine Methadone: negati ve Not Available [facility] [place] [address], [place], [address], 02/23/2019 15:44:19 02/24/2002/23/2019 drug scree n, urine Amphetamines : positi ve Not Available [place] [address], [place], [address], 02/23/2019 15:44:19 02/24/2002/23/2019 drug scree n, urine Morphine/Opi ates: positi ve Not Available [place] [address], [place], [address], 02/23/2019 15:44:19 02/24/2002/23/2019 drug scree n, urine Oxycodone: negati ve Not Available [place] [address], [place], [address], 02/23/2019 15:44:19 02/24/2002/23/2019 drug scree n, urine MDMA: negati ve Not Available [place] [address], [place], [address], 02/23/2019 15:44:19 02/24/20 19 02/23/2019 drug scree n, urine Cocaine: negati ve Not Available [place] [address], [place], [address], 02/23/2019 15:44:19 02/24/20 19 02/23/2019 drug scree n, urine Methamphetam ine: negati ve Not Available [place] [address], [place], [address], 02/23/2019 15:44:19 02/25/20 19 02/24/2019 speci men valid ity testi ng urine creatinine 68 mg/dL 44-355 normal Presc ribed Medic ation s: Diaze jaswinder (Olguin epam) , Codei ne (Code ine) Not Available [facility], [address], [address], 03/02/2019 14:35:47 02/25/20 19 02/24/2019 ssri citalopram Not Detect ed NG/mL 75 normal Not Available [facility], [address], [address], 03/02/2019 14:35:47 02/25/20 19 02/24/2019 ssri N-desmethylc italopram Not Detect ed NG/mL 75 normal Not Available [facility], [address], [address], 03/02/2019 14:35:47 02/25/20 19 02/24/2019 ssri fluoxetine Not Detect ed NG/mL 75 normal Not Available [facility], [address], [address], 03/02/2019 14:35:47 02/25/20 19 02/24/2019 ssri norfluoxetin e Not Detect ed NG/mL 75 normal Not Available [facility], [address], [address], 03/02/2019 14:35:47 02/25/20 19 02/24/2019 ssri paroxetine Not Detect ed NG/mL 75 normal Not Available [facility], [address], [address], 03/02/2019 14:35:47 02/25/20 19 02/24/2019 ssri sertraline Not Detect ed NG/mL 75 normal Presc ribed Medic ation s: Diaze jaswinder (Olguin epam) , Codei ne (Code ine) Not Available [facility], [address], [address], 03/02/2019 14:35:47 02/25/20 19 02/24/2019 amphe tamin es D/L - amphetamine Not Detect ed NG/mL 75 normal Not Available [facility], [address], [address], 03/02/2019 14:35:47 02/25/20 19 02/24/2019 amphe tamin es D/L - methamphetam ine Not Detect ed NG/mL 75 normal Not Available [facility], [address], [address], 03/02/2019 14:35:47 02/25/20 19 02/24/2019 amphe tamin es ritalinic acid Not Detect ed NG/mL 75 normal Presc ribed Medic ation s: Diaze jaswinder (Olguin epam) , Codei ne (Code ine) Not Available [facility], [address], [address], 03/02/2019 14:35:47 02/25/20 19 02/24/2019 marianne turat es butalbital Not Detect ed NG/mL 150 normal Not Available [facility], [address], [address], 03/02/2019 14:35:46 02/25/20 19 02/24/2019 marianne turat es phenobarbita l Not Detect ed NG/mL 150 normal Presc ribed Medic ation s: Diaze jaswinder (Olguin epam) , Codei ne (Code ine) Not Available [facility], [address], [address], 03/02/2019 14:35:46 02/25/20 19 02/24/2019 thera peuti c drugs carisoprodol -soma Not Detect ed NG/mL 75 normal Not Available [facility], [address], [address], 03/02/2019 14:35:46 02/25/20 19 02/24/2019 thera peuti c drugs meprobamate Not Detect ed NG/mL 75 normal Presc ribed Medic ation s: Diaze jaswinder (Olguin epam) , Codei ne (Code ine) Not Available [facility], [address], [address], 03/02/2019 14:35:46 02/25/20 19 02/24/2019 benzo diaze pines 7-aminoclona zepam Not Detect ed NG/mL 60 normal Not Available [facility], [address], [address], 03/02/2019 14:35:45 02/25/2002/24/2019 benzo diaze pines alprazolam Not Detect ed NG/mL 60 normal Not Available [facility], [address], [address], 03/02/2019 14:35:45 02/25/2002/24/2019 benzo diaze pines alpha-hydrox yalprazolam Not Detect ed NG/mL 60 normal Not Available [facility], [address], [address], 03/02/2019 14:35:45 02/25/20 19 02/24/2019 benzo diaze pines lorazepam Not Detect ed NG/mL 60 normal Not Available [facility], [address], [address], 03/02/2019 14:35:45 02/25/20 19 02/24/2019 benzo diaze pines nordiazepam 140 POSITI VE NG/mL 60 normal Not Available [facility], [address], [address], 03/02/2019 14:35:45 02/25/20 19 02/24/2019 benzo diaze pines oxazepam 245 POSITI VE NG/mL 60 normal Not Available [facility], [address], [address], 03/02/2019 14:35:45 02/25/20 19 02/24/2019 benzo diaze pines temazepam 200 POSITI VE NG/mL 60 normal Presc ribed Medic ation s: Diaze jaswinder (Olguin epam) , Codei ne (Code ine) Not Available [facility], [address], [address], 03/02/2019 14:35:45 02/25/20 19 02/24/2019 hilda analo gs gabapentin Not Detect ed NG/mL 225 normal Not Available [facility], [address], [address], 03/02/2019 14:35:45 02/25/2002/24/2019 hilda analo gs pregabalin Not Detect ed NG/mL 225 normal Not Available [facility], [address], [address], 03/02/2019 14:35:45 02/25/2002/24/2019 hilda analo gs zaleplon Not Detect ed NG/mL 7.5 normal Not Available [facility], [address], [address], 03/02/2019 14:35:45 02/25/20 19 02/24/2019 hilda analo gs zolpidem Not Detect ed NG/mL 75 normal Presc ribed Medic ation s: Diaze jaswinder (Olguin epam) , Codei ne (Code ine) Not Available [facility], [address], [address], 03/02/2019 14:35:45 02/25/20 19 02/24/[address] antag buprenorphin e Not Detect ed NG/mL 7.5 normal Not Available [facility], [address], [address], 03/02/2019 14:35:44 02/25/20 19 02/24/[address] antag norbuprenorp rishabh Not Detect ed NG/mL 37.5 normal Not Available [facility], [address], [address], 03/02/2019 14:35:44 02/25/20 19 02/24/[address] antag naloxone Not Detect ed NG/mL 75 normal Not Available [facility], [address], [address], 03/02/2019 14:35:44 02/25/20 19 02/24/[address] antag pentazocine Not Detect ed NG/mL 22.5 normal Presc ribed Medic ation s: Diaze jaswinder (Olguin epam) , Codei ne (Code ine) Not Available [facility], [address], [address], 03/02/2019 14:35:44 02/25/20 19 02/24/2019 opiat es/op ioids codeine POSITI VE >5000 NG/mL 75 normal Not Available [facility], [address], [address], 03/02/2019 14:35:44 02/25/20 19 02/24/2019 opiat es/op ioids fentanyl Not Detect ed NG/mL 6 normal Not Available [facility], [address], [address], 03/02/2019 14:35:44 02/25/20 19 02/24/2019 opiat es/op ioids norfentanyl Not Detect ed NG/mL 6 normal Not Available [facility], [address], [address], 03/02/2019 14:35:44 02/25/20 19 02/24/2019 opiat es/op ioids morphine 901 POSITI VE NG/mL 75 normal Not Available [facility], [address], [address], 03/02/2019 14:35:44 02/25/20 19 02/24/2019 opiat es/op ioids hydrocodone Not Detect ed NG/mL 75 normal Not Available [facility], [address], [address], 03/02/2019 14:35:44 02/25/20 19 02/24/2019 opiat es/op ioids norhydrocodo ne 98 POSITI VE NG/mL 75 normal Not Available [facility], [address], [address], 03/02/2019 14:35:44 02/25/20 19 02/24/2019 opiat es/op ioids hydromorphon e Not Detect ed NG/mL 75 normal Not Available [facility], [address], [address], 03/02/2019 14:35:44 02/25/20 19 02/24/2019 opiat es/op ioids oxycodone Not Detect ed NG/mL 37.5 normal Not Available [facility], [address], [address], 03/02/2019 14:35:44 02/25/20 19 02/24/2019 opiat es/op ioids noroxycodone Not Detect ed NG/mL 37.5 normal Not Available [facility], [address], [address], 03/02/2019 14:35:44 02/25/20 19 02/24/2019 opiat es/op ioids oxymorphone Not Detect ed NG/mL 75 normal Not Available [facility], [address], [address], 03/02/2019 14:35:44 02/25/20 19 02/24/2019 opiat es/op ioids meperidine Not Detect ed NG/mL 37.5 normal Not Available [facility], [address], [address], 03/02/2019 14:35:44 02/25/20 19 02/24/2019 opiat es/op ioids normeperidin e Not Detect ed NG/mL 37.5 normal Not Available [facility], [address], [address], 03/02/2019 14:35:44 02/25/20 19 02/24/2019 opiat es/op ioids methadone Not Detect ed NG/mL 75 normal Not Available [facility], [address], [address], 03/02/2019 14:35:44 02/25/20 19 02/24/2019 opiat es/op ioids methadone (EDDP) Not Detect ed NG/mL 75 normal Not Available [facility], [address], [address], 03/02/2019 14:35:44 02/25/20 19 02/24/2019 opiat es/op ioids propoxyphene Not Detect ed NG/mL 75 normal Not Available [facility], [address], [address], 03/02/2019 14:35:44 02/25/20 19 02/24/2019 opiat es/op ioids norpropoxyph derrick Not Detect ed NG/mL 75 normal Not Available [facility], [address], [address], 03/02/2019 14:35:44 02/25/20 19 02/24/2019 opiat es/op ioids tapentadol Not Detect ed NG/mL 37.5 normal Not Available [facility], [address], [address], 03/02/2019 14:35:44 02/25/20 19 02/24/2019 opiat es/op ioids tramadol Not Detect ed NG/mL 75 normal Not Available [facility], [address], [address], 03/02/2019 14:35:44 02/25/20 19 02/24/2019 opiat es/op ioids E-nap-ogbqfi -cis-tramado l Not Detect ed NG/mL 75 normal Presc ribed Medic ation s: Diaze jaswinder (Olguin epam) , Codei ne (Code ine) Not Available [facility], [address], [address], 03/02/2019 14:35:44 02/25/20 19 02/24/2019 drug confi rmati on, urine comment: See Compon ents normal Presc ribed Medic ation s: Diaze jaswinder (Olguin epam) , Codei ne (Code ine) Not Available [facility], [address], [address], 03/02/2019 14:35:43 04/28/20 19 04/28/2019 opiat es, quant itati ve, urine abnormal status abnormal Not Available [facility], [address], [address], 05/04/2019 11:15:44 04/28/20 19 04/28/2019 speci men valid ity testi ng urine creatinine 73 mg/dL 44-355 normal Pres ribed Medic ation s: Diaze jaswinder (Olguin epam) , Codei ne (Code ine) Not Available [facility], [address], [address], 05/04/2019 11:15:43 04/28/20 19 04/28/2019 opioi ds commo nweal th buprenorphin e Not Detect ed NG/mL 7.5 normal Not Available [facility], [address], [address], 05/04/2019 11:15:43 04/28/20 19 04/28/2019 opioi ds commo nweal th norbuprenorp rishabh Not Detect ed NG/mL 37.5 normal Not Available [facility], [address], [address], 05/04/2019 11:15:43 04/28/20 19 04/28/2019 opioi ds commo nweal th fentanyl Not Detect ed NG/mL 6 normal Not Available [facility], [address], [address], 05/04/2019 11:15:43 04/28/20 19 04/28/2019 opioi ds commo nweal th norfentanyl Not Detect ed NG/mL 6 normal Not Available [facility], [address], [address], 05/04/2019 11:15:43 04/28/20 19 04/28/2019 opioi ds commo nweal th methadone Not Detect ed NG/mL 75 normal Not Available [facility], [address], [address], 05/04/2019 11:15:43 04/28/20 19 04/28/2019 opioi ds commo nweal th codeine Not Detect ed NG/mL 75 abnormal Not Available [facility], [address], [address], 05/04/2019 11:15:43 04/28/20 19 04/28/2019 opioi ds commo nweal th morphine Not Detect ed NG/mL 75 abnormal Not Available [facility], [address], [address], 05/04/2019 11:15:43 04/28/20 19 04/28/2019 opioi ds commo nweal th hydrocodone Not Detect ed NG/mL 75 abnormal Not Available [facility], [address], [address], 05/04/2019 11:15:43 04/28/20 19 04/28/2019 opioi ds commo nweal th norhydrocodo ne Not Detect ed NG/mL 75 abnormal Not Available [facility], [address], [address], 05/04/2019 11:15:43 04/28/20 19 04/28/2019 opioi ds commo nweal th hydromorphon e Not Detect ed NG/mL 75 abnormal Not Available [facility], [address], [address], 05/04/2019 11:15:43 04/28/20 19 04/28/2019 opioi ds commo nweal th naloxone Not Detect ed NG/mL 75 normal Not Available [facility], [address], [address], 05/04/2019 11:15:43 04/28/20 19 04/28/2019 opioi ds commo nweal th pentazocine Not Detect ed NG/mL 22.5 normal Not Available [facility], [address], [address], 05/04/2019 11:15:43 04/28/20 19 04/28/2019 opioi ds commo nweal th meperidine Not Detect ed NG/mL 37.5 normal Not Available [facility], [address], [address], 05/04/2019 11:15:43 04/28/20 19 04/28/2019 opioi ds commo nweal th normeperidin e Not Detect ed NG/mL 37.5 normal Not Available [facility], [address], [address], 05/04/2019 11:15:43 04/28/20 19 04/28/2019 opioi ds commo nweal th oxycodone Not Detect ed NG/mL 37.5 normal Not Available [facility], [address], [address], 05/04/2019 11:15:43 04/28/20 19 04/28/2019 opioi ds commo nweal th oxymorphone Not Detect ed NG/mL 75 normal Not Available [facility], [address], [address], 05/04/2019 11:15:43 04/28/20 19 04/28/2019 opioi ds commo nweal th propoxyphene Not Detect ed NG/mL 75 normal Not Available [facility], [address], [address], 05/04/2019 11:15:43 04/28/20 19 04/28/2019 opioi ds commo nweal th norpropoxyph derrick Not Detect ed NG/mL 75 normal Not Available [facility], [address], [address], 05/04/2019 11:15:43 04/28/20 19 04/28/2019 opioi ds commo nweal th tapentadol Not Detect ed NG/mL 37.5 normal Not Available [facility], [address], [address], 05/04/2019 11:15:43 04/28/20 19 04/28/2019 opioi ds commo nweal th tramadol Not Detect ed NG/mL 75 normal Not Available [facility], [address], [address], 05/04/2019 11:15:43 04/28/20 19 04/28/2019 opioi ds commo nweal th K-efk-aaxfor -cis-tramado l Not Detect ed NG/mL 75 normal Not Available [facility], [address], [address], 05/04/2019 11:15:43 04/28/20 19 04/28/2019 opioi ds commo nweal th noroxycodone Not Detect ed NG/mL 37.5 normal Not Available [facility], [address], [address], 05/04/2019 11:15:43 04/28/20 19 04/28/2019 opioi ds commo nweal th methadone (EDDP) Not Detect ed NG/mL 75 normal Presc ribed Medic ation s: Jet san (Olguin epam) , Codei ne (Code ine) Not Available [facility], [address], [address], 05/04/2019 11:15:43 04/28/20 19 04/28/2019 opiat es, quant itati ve, urine comment: See Compon ents normal Presc ribed Medic ation s: Jet san (Olguin epam) , Codei ne (Code ine) Not Available [facility], [address], [address], 05/04/2019 11:15:42 02/18/20 19 01/04/2019 MRI, lumba r spine , w/o contr ast No observ ation record ed. BARCODE Not Available 2018 12:10:13 Result Notes None recorded. Problems Name Problem SNOMED Code Status Onset Date Resolution Date Notes Provider Name and Address Organization Details Recorded Time Low back pain 032389906 Active 2018 Nadege martinez [facility] 9 15:55:59 Degeneration of lumbar intervertebra l disc 04918687 Active 2018 Nadege martinez [facility] 9 16:23:43 Lumbar spondylosis 821205143 Active 2018 Sukhdeep Dillard MD [address] [place] [address], [phone] , [facility] 9 17:07:06 Problem Notes None recorded. Procedures Surgical History Date Name Laterality Status Provider Name and Address Organization Details Recorded Time 03/30/20 19 Lumbar ADEEL: Interlaminar completed Sukhdeep Dillard MD [address] [place] [address], [phone], [facility] 03/30/2019 10:39:43 03/09/20 19 Lumbar ADEEL: Interlaminar completed Sukhdeep Dillard MD [address] [place] [address], [phone], [facility] 03/09/2019 12:22:55 Knee Surgery completed [facility] 02/23/2019 15:51:20 Shoulder Surgery completed [facility] 02/23/2019 15:56:51 Spinal Cord Stimulator Implant completed [facility] 02/23/2019 15:57:05 hysterectomy completed [facility] 02/23/2019 15:57:29 ligation of bilateral fallopian tubes completed [facility] 02/23/2019 15:57:43 Removal of tonsils completed [facility] 02/23/2019 15:58:07 Imaging Results None recorded. Procedure Notes None recorded. Medical Equipment None Reported. Allergies No known drug allergies Medications Name Sig Start Date Stop Date Status Note LastModified by Organization Details LastModified Time cyclobenzap rine 10 mg tablet 11/29 completed Not Available Not Available Not Available ibuprofen 800 mg tablet 11/29 completed Not Available Not Available Not Available phentermine 37.5 mg tablet Take 1 tablet every day by oral route. active Not Available Not Available No t Available acetaminoph en 300 mg-codeine 30 mg tablet TAKE 1 TABLET BY MOUTH FOUR TIMES A DAY DIRECTED FOR 30 DAYS active Not Available Not Available No t Available oxycodone-a cetaminophe n 10 mg-325 mg tablet TAKE 1 TAB BY MOUTH FOUR TIMES A DAY NEEDED FOR PAIN UNTIL SHE CAN ESTABLISH WITH PAIN MANAGEMEN T active Not Available Not Available No t Available trazodone 100 mg tablet Take 1 tablet twice a day by oral route. active Not Available Not Available No t Available cephalexin 500 mg capsule 11/29 completed Not Available Not Available Not Available lisinopril 10 mg tablet 11/29 completed Not Available Not Available Not Available methylpredn isolone 4 mg tablets in a dose pack 04/27 completed Not Available Not Available Not Available topiramate 100 mg tablet 11/29 completed Not Available Not Available Not Available naproxen 500 mg tablet 11/29 completed Not Available Not Available Not Available diazepam 5 mg tablet 11/29 completed Not Available Not Available Not Available escitalopra m 10 mg tablet TAKE 1 TABLET BY MOUTH EVERY DAY active Not Available Not Available No t Available Adacel (Tdap Adolesn/Jorge lt)(PF)2Lf- (2.5-5-3-5m cg)-5 Lf/0.5 mL IM susp 04/27 completed Not Available Not Available Not Available Tylenol-Cod eine #3 3x daily 02/23 completed Not Available Not Available Not Available Nexium 24HR 20 mg tablet,danita yed release 11/29 completed Not Available Not Available Not Available Vitals Date Recorded Body height Body mass index (BMI) Body weight Provider Name and Address Organization Details Last Updated DateTime 11/30/2023 170.18 cm 28.2 kg/m2 67744.63 g [facility]lymahsa [facility] 11/30/2023 13:54:30 Date Recorded Body height Body mass index (BMI) Body weight Heart rate Oxygen saturation Oxygen saturation in Arterial blood by Pulse oximetry Systolic blood pressure Diastolic blood pressure Provider Name and Address Organization Details Last Updated DateTime 9 170.18 cm 31.6 kg/m2 55723.6 6 g 80 /min 93 % 93 % 138 mm[Hg] 90 mm[Hg] [facility] 9 10:59:49 Date Recorded Body height Body mass index (BMI) Body weight Oxygen saturation Oxygen saturation in Arterial blood by Pulse oximetry Heart rate Systolic blood pressure Diastolic blood pressure Provider Name and Address Organization Details Last Updated DateTime 9 170.18 cm 31.3 kg/m2 61128.4 7 g 93 % 93 % 80 /min 128 mm[Hg] 86 mm[Hg] [facility] 9 07:40:33 Social History Question Answer Notes LastModified by Organizat ion Details LastModified Time Tobacco Smoking Status Current Every Day Smoker Not Available [facility] 06/29/2020 03:18:53 Do You Have An Advance Directive? Yes Information not available 11/30/2023 What Is Your Level Of Caffeine Consumption? Heavy [id number] Information not available 06/29/2020 How Much Tobacco Do You Chew? None [id number] Information not available 06/29/2020 Are You Deaf Or Do You Have Serious Difficulty Hearing? No [id number] Information not available 06/29/2020 What Type Of Diet Are You Following? REGULAR Information not available 11/30/2023 Education 2 Year College [email or web address] Information not available 02/23/2019 What Is The Highest Grade Or Level Of School You Have Completed Or The Highest Degree You Have Received? [id number] Information not available 11/30/2023 How Many Times Per Week Do You Exercise? 1-2 Times Per Week Information not available 11/30/2023 Hard Of Hearing Or Deaf In One Or Both Ears? No [email or web address] Information not available 02/23/2019 Prescription Drug Abuse No [email or web address] Information not available 02/23/2019 Disability No [email or web address] Information no t available 02/23/2019 History Of Sexual Abuse No [email or web address] Information not available 02/23/2019 Marital Status Single [email or web address] Informatio n not available 02/23/2019 Do You Have A Medical Power Of Battery Tester Field? Yes Information not available 11/30/2023 What Was The Date Of Your Most Recent Tobacco Screening? 11/30/2023 Information not available 11/30/2023 What Is Your Relationship Status? Information not available 11/30/2023 At What Age Did You Start Smoking Tobacco? 23 [id number] Information not available 06/29/2020 How Much Tobacco Do You Smoke? 1 PPD [id number] Information not available 06/29/2020 General Stress Level Low Information not available 02/23/2019 How Many Years Have You Smoked Tobacco? 25 [id number] Information not available 06/29/2020 Do You Have Difficulty Walking Or Climbing Stairs? No [id number] Information not available 06/29/2020 Sex: Unknown Functional Status Question Answer Note LastModified by Organizat ion Details LastModified Time What is your level of alcohol consumption? None [id number] Information not available 06/29/2020 Are you able to walk? YESWOREST [id number] Information not available 06/29/2020 Do you have difficulty doing errands alone? No [id number] Information not available 06/29/2020 What is your occupation? [employer] Information not available 11/30/2023 Do you have difficulty dressing or bathing? No [id number] Information not available 06/29/2020 What is your exercise level? Moderate [id number] Information not available 06/29/2020 Mental Status Question Answer Note LastModified by Organization D etails LastModified Time Do you have difficulty concentrating, remembering or making decisions? No [id number] Information no t available 06/29/2020 Family History Nothing Reported. Medical History Condition Response Bipolar Disease N Coronary Artery Disease N Seizure Disorder N Gout N Thyroid Disease N Atrial Fibrillation N Head Trauma/Injury N Hernia N Depression N COPD N Anxiety Disorder Y Acid Reflux (GERD) Y Cancer N Stroke N Skin Disorder N High Cholesterol N Liver Disease N Rheumatoid Arthritis N Fibromyalgia N Headaches N Kidney Disease N Autoimmune Disease N Osteoarthritis N Neurosurgery Y DVT N Anemia N Heart Attack (MD) N Diabetes N Cardiomyopathy N Bleeding Disorder N CHF N AIDS/HIV N Inflammatory Bowel Disease N Dementia N Asthma N Substance Abuse N Sleep Apnea N Hepatitis N Heart Disease N Pulmonary Embolism N Chronic Low Back Pain Y Hypertension Y Osteoporosis N Gynecological HistoryNo gynecological history recorded. Obstetrics History GPAL:G 0 P 0 0 0 0 Past Encounters Encounter ID Performer Location Encounter Start Date Encounter Closed Date Diagnosis/Indication Diagnosis SNOMED-CT Code Diagnosis ICD10 Code Diagnosis Note [id number] Sukhdeep Dillard MD [address] [place] [address] 02/23/2019 15:25:13 02/23/2019 16:31:17 Long-term drug therapy 818780954 Z79.899 Up to date Informed Consent and Opioid Agreement have been signed and incorporat ed into the chart. Patient has been provided written educationa l materials regarding potential adverse effects of snf opioid therapy MEDICAL INDICATION S: Pain has been refractory to repeated attempts at conservati ve management , is of a moderate to severe degree and an organic source is suspected. The medication prescribed will be used in conjuction with a comprehens sylvia pain program to meet the establishe d goals. Urine drug screening is regularly performed to monitor compliance during active treatment for medication misuse or diversion. FELI/OAR S has been reviewed and documented to assure compliance with dosing scheduling , pain agreement MY OVERALL IMPRESSION IS THAT THIS PATIENT IS BENEFITING FROM OPIOID THERAPY. Degenerati on of lumbar intervertebral disc 07698560 M51.36 Lumbar spondylosis 16222 0009 M47.816 Medication monitoring 39 5861341 Z79.899 A preliminar y urine drug screen was obtained today and will be sent for confirmati on of all substances for baseline testing to aid in risk stratifica tion and rule out illicit drug use prior to prescribin g controlled substances . [id number] MD L[facility] [place] [address] [place] [address] 03/09/2019 10:14:28 03/09/2019 10:44:20 Degeneration of lumbar intervertebral disc 36975070 M51.36 [id number] MD Lilli [place] [address] [place] [address] 03/30/2019 09:02:16 03/30/2019 09:27:11 Degeneration of lumbar intervertebral disc 24184317 M51.36 [id number] Sukhdeep Dillard MD [place] [address] [place] [address] 04/27/2019 10:02:09 04/27/2019 11:26:39 Degeneration of lumbar intervertebral disc 07564571 M51.36 History and exam are consistent with pain from lumbar arthritis, supported by imaging which we reviewed today. Symptoms have not responded to >3 months conservati ve therapy including but not limited to rest, medication s, therapy, IM injection. Symptoms are affecting her ability to perform ADLs. Will submit for BRANDON LMBB L3-5 and if results favorable plan to proceed to RFA. Long-term drug therapy 968462120 Z79.899 Lumbar spondylosis 89731 0009 M47.816 Medication monitoring 39 7086538 Z79.899 The preliminar y urine drug screen is appropriat e for the class of medication s that the patient is being prescribed , however the patient's current medication is in a large family of drugs. The sample is being sent for quantitati ve, LCMS analysis to confirm the presence of this specific drug within this much larger family of drugs and to evaluate for the expected metabolite s. [id number] Sukhdeep Dillard MD [place] [address] [place] [address] 06/01/2019 07:25:42 06/01/2019 07:56:45 Degeneration of lumbar intervertebral disc 47827816 M51.36 Long-term drug therapy 353013866 Z79.899 Lumbar spondylosis 08263 0009 M47.513 [id number] Sukhdeep Dillard MD [place] [address] [place] [address] 11/30/2023 13:44:40 11/30/2023 14:16:04 Long-term drug therapy 111341038 Z79.899 Up to date Informed Consent and Opioid Agreement have been signed and incorporat ed into the chart. Patient has been provided written educationa l materials regarding potential adverse effects of snf opioid therapy MEDICAL INDICATION S: Pain has been refractory to repeated attempts at conservati ve management , is of a moderate to severe degree and an organic source is suspected. The medication prescribed will be used in conjuction with a comprehens sylvia pain program to meet the establishe d goals. Urine drug screening is regularly performed to monitor compliance during active treatment for medication misuse or diversion. FELI/OAR S has been reviewed and documented to assure compliance with dosing scheduling , pain agreement MY OVERALL IMPRESSION IS THAT THIS PATIENT IS BENEFITING FROM OPIOID THERAPY. Degenerati on of lumbar intervertebral disc 82209880 M51.36 Lumbar spondylosis 46366 0009 M47.816 Health Concerns Section Related Observation LastModified by Organization Detai ls LastModified Time None Recorded Concern Status LastModified by Organization Details LastModified Time None Recorded Advance Directives Directive Y: Payers Insurance Date Sequence Insurance Name Policy Number Policy Anthony Covered Member ID Anthony Member ID Guarantor Name 12/26/2023 2 [place] [id number] Candice Phillip [id number] Candice Barker 12/26/2023 1 U[facility] [id number] [facility] [place] [id number] [facility] Notes Date Note Type Note Provider Name and Address Organization Details Recorded Time 03/09/2019 text/html Injection LESI L5-S1, #1 Sukhdeep Dillard MD [address] [place] [address], [phone], [facility] 03/09/2019 12:23:19 03/30/2019 text/html Injection: LESI L5-S1, #2 Sukhdeep Dillard MD [address] [place] [address], [phone], [facility] 03/30/2019 10:40:06 04/27/2019 text/html Follow-up (meds & injections)Reported bypatient.Improvemen t:Pain is the same as compared to last visit. 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 Adverse Reactions:No nausea.; No vomiting.; No constipation.; No itching.; No sedation.; No respiratory depression.; No sexual dysfunction. Physical Therapy:Completed course in the past- 6 wks; Response to therapy- made pain worse Recent Injections:Epidural steroid injection-; LMBB/Facet injections-; Radiofrequency Ablation-; Pain relief from injections- 80% lasting for ; Improvement in ADLs-Low back painReported bypatient.Onset:date of onset: (11/28/18); continuous since onset; back trouble for 10-15 years prior to this episode. 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); opioids (gives some relief and helps her get through the day); cortisone injection (Urgent care gave her 3 injections) Aggravating Factors:lifting; carrying; twisting; bending/squatting; pushing/pulling; ROM; getting out of bed; going from sit to stand; morning; cold weather; damp weather Timing:constant; worse in the morning; patient states it just depends on what she is doing but that morning is very painful Associated Symptoms:no weakness; no numbness; no tingling; no pain radiating down leg; no swelling; no popping/clicking; no bowel incontinence; no urinary retention; no urinary incontinence; no perineal paresthesia/anesthes ia Prior Imaging:x-ray; MRI Previous Lumbar Surgery:procedure: (Spinal cord stim and removal); removed 2014 Previous Injections:lumbar ESIs; lumbar medial branch nerve blocks; lumbar RFA Previous PT:response to therapy: no improvement in pain Medications History:muscle relaxants: (Flexeril); opioid pain medications: (Tylenol #3) Work Related:no Working:no Prior Pain Management:yes; Interventional Pain specialist- Dr Campbell. left due to insurance. [facility] [place]- Dr Trimble. Left due to moved from [place] to [place]. Carly [facility] [place] - [facility] 04/27/2019 17:20:07 06/01/2019 text/html Follow-up (meds & injections)Reported bypatient.Improvemen t:Pain is getting worse.; Pain is the same as compared to last visit. 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 Adverse Reactions:No nausea.; No vomiting.; No constipation.; No itching.; No sedation.; No respiratory depression.; No sexual dysfunction. Physical Therapy:Completed course in the past- 6 wks; Response to therapy- made pain worse Recent Injections:Epidural steroid injection-; LMBB/Facet injections-; Radiofrequency Ablation-; Pain relief from injections- 80% lasting for ; Improvement in ADLs-Low back painReported bypatient.Onset:date of onset: (11/28/18); sudden onset; back trouble for 10-15 years prior to this episode. 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); opioids (gives some relief and helps her get through the day); cortisone injection (Urgent care gave her 3 injections) Aggravating Factors:lifting; carrying; twisting; bending/squatting; pushing/pulling; ROM; getting out of bed; going from sit to stand; morning; cold weather; damp weather Timing:constant; worse in the morning; patient states it just depends on what she is doing but that morning is very painful Associated Symptoms:no weakness; no numbness; no tingling; no pain radiating down leg; no swelling; no popping/clicking; no bowel incontinence; no urinary retention; no urinary incontinence; no perineal paresthesia/anesthes ia Prior Imaging:x-ray; MRI Previous Lumbar Surgery:lumbar decompression/discec osvaldo: (Spinal cord stim and removal); removed 2014 Previous Injections:lumbar ESIs; lumbar medial branch nerve blocks; lumbar RFA Previous PT:currently in PT:; Chiropractor - Dr. Saucedo Medications History:muscle relaxants: (Flexeril); opioid pain medications: (Tylenol #3) Work Related:no Working:no Prior Pain Management:yes:; Interventional Pain specialist- Dr Campbell. left due to insurance. [facility] [place]- Dr Evangelista and Aakash. Left due to moved from [place] to [place]. Caryl Russ [place], [place] - [facility] 06/01/2019 12:27:44 11/30/2023 text/html Low back painReported bypatient.Onset:date of onset: (11/28/18); back trouble for 10-15 years prior to this episode. 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); opioids (gives some relief and helps her get through the day); cortisone injection (Urgent care gave her 3 injections) Aggravating Factors:lifting; carrying; twisting; bending/squatting; pushing/pulling; ROM; getting out of bed; standing from a seated position; cold weather Associated Symptoms:no weakness; no numbness; no tingling; no swelling; no popping/clicking; no bowel incontinence; no urinary retention; no urinary incontinence; no perineal paresthesia/anesthes ia Functional Assessment of ADLsDifficulty completing 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 Prior Imaging:x-ray; MRI Lumbar Surgery:lumbar decompression/discec osvaldo: (Spinal cord stim and removal); removed 2014 Interventional Treatment History:lumbar ESIs: ; lumbar medial branch nerve blocks: ; lumbar RFA: Physical Therapy:currently in PT: ; Chiropractor - Dr. Saucedo Medications History:Muscle relaxants: (Flexeril); Opioid pain medications: (Tylenol #3) Adverse Reactions:No nausea; No vomiting; No constipation Other Conservative Treatments:chiroprac tic treatments: effective; heat: effective; ice: not effective; TENS unit: not effective Prior Pain Management:yes:; Interventional Pain specialist- Dr Campbell. left due to insurance. [facility] [place]- Dr Trimble. Left due to moved from [place] to [place]. For Female Patients:Are you ? No Sukhdeep Dillard MD [address] [place] [address], [place], [address], [facility]ly [facility] 11/30/2023 15:01:16 OBGyn Episode No OBEpisode recorded.
--- OUTSIDE RECORDS SUMMARY | 2025-03-04 16:53 | XMS_ITS | Clinical Summary ---
Author Organization [facility] Address [address] [place] [address] Phone Care Team Providers Care Cannon Crewmember Name Role Phone Lee Bliss MD [phone] Conditions or Problems Problem Name Problem Code Onset Date Status Entry Date Provider Comment Standard Description Annotate FOLLOW-UP EXAMINATION FOLLOWING OTHER SURGERY Z09 (ICD-10-CM) 04/19 Active 04/19 Nona Torrez MA Encounter for follow-up examination after completed treatment for conditions other than malignant neoplasm LUMBAR RADICULOPATHY 559093010 (SNOMED CT) 04/02 Active 04/02 Ximena Traylor MA Lumbar radiculopathy BACK PAIN, LUMBAR [id number] (SNOMED CT) 04/02 Active 04/02 Ximena Traylor MA Low back pain Medications Medication Instructions Start Date Stop Date Generic Name [facility] Provider VICODIN 5-500 MG TABS 1 po QID 7 HYDROCODONE-ACET AMINOPHEN [id number] Lee Bliss MD VICODIN ES 7.5-750 MG TABS take 1 to 2 every 6 hours as needed for pain 1 HYDROCODONE-ACET AMINOPHEN [id number] Lee Bliss MD ROBAXIN-750 TABLET 1 po Q 8 hours prn spasm 8 METHOCARBAMOL TABS [id number] Lee Bliss MD PERCOCET 5-325 MG TABS 1 t o2 PO Q 4-6 hours prn pain 8 OXYCODONE-ACETAM INOPHEN [id number] Lee Bliss MD OXYCODONE HCL 10 MG TB12 [facility] 0 OXYCODONE HCL [id number] Ximena Traylor MA Medications Administered No information available. Allergies, Adverse Reactions, Alerts Observed no known allergies at Results No information available. Plan of Care Type Date Detail Pending order CRP Pending order Sed Rate Pending order X-Ray Lumbar AP & Lateral Pending order X-Ray Thoracic A P & Lateral Pending order X-Ray Other Pending order X-Ray Lumbar Fle xion/Extension Pending order X-Ray Lumbar AP & Lateral Procedures No information available. Vital Signs Date Name Value Unit Description BP Diastolic 67 mm[Hg] blood pressu re, diastolic BP Systolic 150 mm[Hg] blood pressur e, systolic Body Temperature 98.6 [degF] temperat ure E&M Heart Rate 80 /min pulse rate Respiratory Rate 18 /min respirat ory rate E&M Weight Measured 190 [lb_av] weight E& M Weight Measured 190 [lb_av] weight E& M Height 67 [in_us] height E&M Immunizations No information available. Advance Directives No information available.
--- OUTSIDE RECORDS SUMMARY | 2025-03-04 16:53 | XMS_ITS | Clinical Summary ---
Author Organization [facility] [place] [address] [facility] Address [address] [place] [phone] Phone Care Team Providers Care It Communications Manager Name Role Phone Jose Wells MD Primary Care Provider [phone] Allergies Active Allergy Reactions Criticality Noted Date Comments Prednisone Other (See Comments) 05/09/2012 Joint pain Medications hydrocodone-brandy taminophen (NORCO) 10-325 mg per tablet Take 1 Tab by mouth every 6 hours as needed. Active morphine (MSIR) 15 mg tablet Take 15 mg by mouth 3 times daily. Active lidocaine (LIDODERM) 5 %(700 mg/patch) patch Place onto the skin once. Active naproxen (NAPROSYN) 500 mg Oral Tablet Take 1 Tablet by mouth 2 times daily as needed for Pain for up to 30 days. 30 Tablet 01/25/2025 Active Problems Problem Noted Date Diagnosed Date Chronic back pain Anxiety associated with depression Encounters Date Type Department Care Team Description 01/25/2025 8:13 AM EDT - 01/25/2025 9:33 AM EDT [facility] [address] [facility] [place] [address] Jose Kang MD Acute costochondritis (Primary Dx) Discharge Disposition: Home or Self Care 01/25/2025 Travel from Last 3 Months Immunizations Immunization Administration Dates Next Due Td, Unspecified Formulation 09/14/1994 Tdap 02/19/2010 Surgical History Surgery Date Site/Laterality Comments TONSILLECTOMY AND ADENOIDECTOMY TUBAL LIGATION KNEE SURGERY 2000 Right Patella Realignment Medical History Medical History Date Comments Chronic back pain Anxiety associated with depression Social History Tobacco Use Types Packs/Day Years [...] on file Sexual Orientation Not on file Obstetrics History Last Filed Vital Signs Vital Sign Reading Time Taken Comments Blood Pressure 156/86 01/25/2025 8:17 AM EDT Pulse 72 01/25/2025 8:30 AM EDT Temperature 36.9 C (98.4 F) 01/25/2025 8:22 AM EDT Respiratory Rate 16 01/25/2025 8:17 AM EDT Oxygen Saturation 100% 01/25/2025 8:30 AM EDT Inhaled Oxygen Concentration - - Weight 81.6 kg (180 lb) 01/05/2015 6:09 PM EDT Height 170.2 cm (5' 7 ) 01/05/2015 6:09 PM EDT Body Mass Index 28.19 01/05/2015 6:09 PM EDT Plan of Treatment Health Maintenance Due Date Last Done Comments Annual Wellness Exam 11/27/1975 Hepatitis B Vaccine (1 of 3 - 19+ 3-dose series) 11/27/1991 Pneumococcal Vaccine 50+ (1 of 2 - PCV) 11/27/1991 Cervical Cancer Screening 1993 Pap Smear 1993 HPV/Pap Cotest 2002 Breast Cancer Screening 2012 Cologuard 2017 Colon Cancer Screening 2017 Colonoscopy 2017 FIT 2017 Sigmoidoscopy 2017 Virtual Colonography 2017 Zoster (1 of 2) 2022 COVID-19 Vaccine (2 - season) 2024 02/13/2024 Influenza Vaccine (Season Ended) 2025 06/07/2020, 08/17/2019 DTaP/TDaP/Td (4 - Td or Tdap) 08/10/2028 08/10/2018, 04/28/2018, 02/19/2010, Additional history exists Meningococcal B Vaccine Aged Out No l onger eligible based on patient's age to complete this topic Procedures Procedure Name Priority Date/Time Associated Diagnosis Comments SCANNED EKG 01/26/2025 8:42 AM EDT XR CHEST PA AND LATERAL STAT 01/25/2025 9:01 AM EDT D-DIMER STAT 01/25/2025 8:28 AM EDT TROPONIN-T HIGH SENSITIVITY BASELINE W/ REFLEX STAT 01/25/2025 8:28 AM EDT BASIC METABOLIC PANEL STAT 01/25/2025 8:28 AM EDT CBC WITH DIFF STAT 01/25/2025 8:28 AM EDT EK EKG 12 LEAD STAT 01/25/2025 8:10 AM EDT from Last 3 Months Results * SCANNED EKG (01/26/2025 8:42 AM [...] please contactthe office of the ordering clinician. Jose Kang MD IMG DIAGNOSTIC IMAGING ORDE RABLES Final Result * TROPONIN-T HIGH SENSITIVITY BASELINE W/ REFLEX (01/25/2025 8:28 AM EDT) Pathologist [facility] [id number] 7 <14 ng/L 01/25/2025 8:50 AM EDT [facility] Blood VENOUS BLOOD / Unknown Venipuncture / Unknown 01/25/2025 8:28 AM EDT 01/25/2025 8:30 AM EDT Narrative [facility] - 01/25/2025 8:50 AM EDT Ingestion of pritesh doses of biotin (>5 mg/day) taken within 8 hours of drawing blood sample can interfere with this immunoassay test. Jose Kang MD CHEMISTRY ORDERABLES Final Result [facility] [address] [id number] * D-DIMER (01/25/2025 8:28 AM EDT) [facility] D-Dimer 466 <=500 ng/mL FEU 01/25/2025 8:44 AM EDT [facility] Comment:This is an automated latex enhanced [...] AM EDT 01/25/2025 8:30 AM EDT Narrative [facility] - 01/25/2025 8:44 AM EDT For patients between the ages of 50 - 75, an age-adjusted D-Dimer cut-off in combination with non-high clinical probability may be considered for the exclusion of venous thromboembolism (calculation = age x 10). GURINDER Moore, et al. Manjula Supervisor [employer]. 2017;166(5):361-363 SANDY Garcia, et al. Manjula Supervisor [employer]. 2015;(163):701-711. Hernando M, et al. SAMUEL. 2014;(11):8443-1284. us Jose Kang MD HEMATOLOGY ORDERABLES Final Result [facility] [address] [place] [address] * (ABNORMAL) CBC WITH DIFF (01/25/2025 8:28 AM EDT) WBC 10.8(H) 3.7 - 10.3 x10(3)/mcL 01/25/2025 8:33 AM EDT [facility] RBC 4.41 3.90 - 5.20 x10(6)/mcL 01/25/2025 8:33 AM EDT [facility] Hgb 13.8 11.2 - 15.7 g/dL 01/25/2025 8:33 AM EDT [facility] Hct 42.3 34.0 - 45.0 % 01/25/2025 8:33 AM EDT [facility] MCV 95.9 80.0 - 100.0 fL 01/25/2025 8:33 AM EDT [facility] MCH 31.3 26.0 - 34.0 pg 01/25/2025 8:33 AM EDT [facility] MCHC 32.6 30.7 - 35.5 g/dL 01/25/2025 8:33 AM EDT [facility] RDW 13.0 <=14.9 % 01/25/2025 8:33 AM [facility] Platelet 370(H) 155 - 369 x10(3)/[facility] 01/25/2025 8:33 AM [facility] MPV 9.4 8.8 - 12.5 fL 01/25/2025 8:33 AM [facility] Neut Percent 72.1 % 01/25/2025 8:33 AM [facility] Comment:Neutrophils equals s egs plus bands Imm Gran% 0.1 % 01/25/2025 8:33 AM [facility] Comment:Automated count of m etamyelocytes, myelocytes and promyelocytes. Lymph Percent 19.6 % 01/25/2025 8:33 AM [facility] [place] Percent 5.1 % 01/25/2025 8:33 AM [facility] Eos Percent 2.4 % 01/25/2025 8:33 AM [facility] Baso Percent 0.7 % 01/25/2025 8:33 AM [facility] Neut # 7.7(H) 1.6 - 6.1 x10(3)/[facility] 01/25/2025 8:33 AM [facility] Comment:Neutrophils equals s egs plus bands IMMGRAN# 0.0 0.0 - 0.1 x10(3)/[facility] 01/25/2025 8:33 AM [facility] Comment:Automated count of m etamyelocytes, myelocytes and promyelocytes. An absolute IG <0.1 is reported as 0.0. Lymph # 2.1 1.2 - 3.9 x10(3)/[facility] 01/25/2025 8:33 AM [facility] [place] # 0.6 0.3 - 0.9 x10(3)/[facility] 01/25/2025 8:33 AM [facility] Eos# 0.3 0.0 - 0.5 x10(3)/[facility] 01/25/2025 8:33 AM [facility] Baso # 0.1 0.0 - 0.1 x10(3)/[facility] 01/25/2025 8:33 AM [facility] Blood VENOUS BLOOD / Unknown Venipuncture / Unknown 01/25/2025 8:28 AM EDT 01/25/2025 8:30 AM EDT us Jose Kang MD HEMATOLOGY ORDERABLES Final Result [facility] [address] [place], [place] [id number] * (ABNORMAL) BASIC METABOLIC PANEL (01/25/2025 8:28 AM EDT) Sodium 138 136 - 145 mmol/L 01/25/2025 8:50 AM EDT [facility] Potassium 4.1 3.5 - 5.0 mmol/L 01/25/2025 8:50 AM EDT [facility] Chloride 101 98 - 107 mmol/L 01/25/2025 8:50 AM EDT [facility] Total CO2 24 22 - 29 mmol/L 01/25/2025 8:50 AM EDT [facility] Anion Gap 13 7 - 16 mmol/L 01/25/2025 8:50 AM EDT [facility] Calcium 9.4 8.6 - 10.4 mg/dL 01/25/2025 8:50 AM T [facility] Glucose Lvl 143(H) 70 - 99 mg/dL 01/25/2025 8:50 AM EDT [facility] BUN 11 6 - 20 mg/dL 01/25/2025 8:50 AM T [facility] Creatinine 0.80 0.51 - 1.30 mg/dL 01/25/2025 8:50 AM T [facility] eGFR (CKD-EPIcr 2020) 88 >=60 mL/min/1.7 3 m2 01/25/2025 8:50 AM T [facility] Comment:Estimated GFR was ca lculated using the CKD-EPIcr (2020) equation refit without race. The equation is recommended by the National Kidney Foundation - [employer] Society of Nephrology Task Force. 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: : 1970 Requested By: [id number] [facility] Order Number: [id number] Reading MD: Vicente Oliva MD Measurements Intervals [place] Rate: 86 P: 60 NC: 153 QRS: 6 QRSD: 89 T: 50 QT: 361 QTc: 432 Interpretive Statements SINUS RHYTHM POSSIBLE LEFT ATRIAL ENLARGEMENT Electronically Signed On 01-25-2025 08:23:04 EDT by Vicente Oliva MD Narrative Procedure Note Vicente Oliva MD - 01/25/2025 IMPRESSION [place] [facility] Md Test Date: 2025-01-25 Pat Name: PATEL VIERA Department: DEPID Room: Gender: Female Zipper Machine Operator: : 1970 Requested By: [facility] Order Number: [id number] Reading MD: Vicente Oliva MD Measurements Intervals [place] Rate: 86 P: 60 NC: 153 QRS: 6 QRSD: 89 T: 50 QT: 361 QTc: 432 Interpretive Statements SINUS RHYTHM POSSIBLE LEFT ATRIAL ENLARGEMENT Electronically Signed On 01-25-2025 08:23:04 EDT by Vicente Oliva MD us Jose Kang MD IMG ECG ORDERABLES Final Re sult from Last 3 Months Insurance [employer] [place] MDR [employer] OPEN ACCESS PLUS AUTO INS AA AUT[employer] INS AA [employer] [place] [facility] Care Teams It Communications Manager Relationship Specialty Start Date End Date Jose Wells MD [address] [place] [id number] PCP - General Emergency Medicine 01/05/15
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
--- OUTSIDE RECORDS SUMMARY | 2025-03-04 16:54 | XMS_ITS | Encounter Summary ---
Author Organization [facility] [place] [address] Care Team Providers Care Commercial Appraiser Name Role Phone Jose Wells MD Primary Care Provider Encounter Details Date Type Department Care Team (Latest Contact Info) Description 01/25/2025 Travel Social History Tobacco Use Types Packs/Day Years [...] on file documented as of this encounter Functional Status * Suicide Severity Rating Answer Date of Assessment Author No Risk 01/25/2025 8:21 AM EDT Ximena Mendoza RN * [place] Suicide Severity Rating Scale (Q shift for [...] Mendoza RN documented as of this encounter Plan of Treatment Not on file documented as of this encounter Visit Diagnoses Not on filedocumented in this encounter Care Teams Commercial Appraiser Relationship Specialty Start Date End Date Jose Wells MD [address] [place] [address] [place] [address] PCP - General Emergency Medicine 01/05/15 documented as of this encounter
--- NOTE | 2025-03-04 16:57 | ED_ITS ---
<Statement entered by Shannan Sorenson DO - 03/04/25 20:03> I was consulted by the MESSI, and we discussed the complexity of the problems being addressed. I approved the treatment and management plan for this patient's care in the emergency department, thus performing a substantive portion of the medical decision making. Shannan Sorenson DO Discharge Plan Disposition Patient Disposition: Home, Self-Care Prescriptions Prescriptions: New methocarbamol 500 mg tablet 500 mg PO TID Qty: 90 0RF ketorolac 10 mg tablet 10 mg PO Q8H PRN (Reason: pain) 3 Days Qty: 9 0RF No Action montelukast [Singulair] 10 mg tablet 10 mg PO BID naproxen 500 mg tablet 500 mg PO DAILYDM PRN (Reason: .) Patient Comments: TAKE 1 TABLET BY MOUTH EVERY DAY NEEDED oxycodone-acetaminophen [Percocet] 10-325 mg tablet 1 tab PO QID PRN (Reason: pain) Qty: 20 0RF Rx Instructions: until she can establish with pain management Movantik 25 mg tablet 25 mg PO DAILY Qty: 90 2RF Rx Instructions: must be taken on empty stomach; no food 1 hr after or 2-3 hrs before dose Relistor 150 mg tablet 450 mg PO DAILY Qty: 90 11RF Rx Instructions: Please take 3 tablets p.o. daily omeprazole 40 mg capsule,delayed release(DR/EC) 40 mg PO DAILY Qty: 30 12RF Rx Instructions: Please take 1 capsule p.o. daily Referrals Follow up/Referrals: Lee Mejia MD [Primary Care Provider, Family Practice] - See instructions Activity Restrictions/Add. Instructions Additional Instructions/Restrictions: Today you were evaluated in the emergency department for right hip pain. The imaging of your right hip and pelvis is unremarkable for any fracture. Please take acetaminophen and ibuprofen and follow-up with your PCP for possible physical therapy referral or Ortho referral. Please return to the ED for worsening of condition. STOP TAKING ANY ADDITIONAL NSAIDS WHILE TAKING KETOROLAC Clinical Impressions Clinical Impression: Acute pain of right hip Stand Alone Forms Stand Alone Forms: Work/School Release Instructions Patient Instructions: DI for Hip Pain Print Language Print Language: Belgian Discharge ED Provider: Shannan Sorenson General Adult HPI General Chief complaint: PAIN Stated complaint: R hip pain Time Seen by Provider: 03/04/25 16:39 Mode of Arrival: Ambulatory Source of Information: Patient Description of Symptoms (Recalled from ER Triage Doc. by RN): pt states around 1100 when getting out of her vehicle she began having severe R hip pain. pt states her pain is 9/10 and sharp/shooting. pt states she took 800mg ibuprofen at 1200, 10mg percocet at 1600, and 500mg naproxen at 1600. pt states her pain has not decreased at all. pt denies injury. History of Present Illness HPI narrative: patient is a 54-year-old female PMHx right knee replacement years ago, presents to the ED for sudden onset right hip pain that started this morning around 1130. She denies any injury, denies any falls. States that the pain is worse with weightbearing. Related Data Home Medications ?Medication ?Instructions ?Recorded ?Confirmed montelukast 10 mg tablet 10 mg PO BID 12/07/24 (Singulair) naproxen 500 mg tablet 500 mg PO DAILYDM PRN . 11/1302/16/25 Previous Rx's ?Medication ?Instructions ?Recorded oxycodone-acetaminophen 10 mg-325 1 tab PO QID PRN kym n #20 tabs 02/10/24 mg tablet (Percocet) methylnaltrexone 150 mg tablet 450 mg (3 x 150 mg) PO DAILY #90 02/16/25 (Relistor) tabs omeprazole 40 mg capsule,delayed 40 mg PO DAILY #30 ca ps 02/16/25 release naloxegol 25 mg tablet (Movantik) 25 mg PO DAILY #90 t abs 02/23/25 ketorolac 10 mg tablet 10 mg PO Q8H PRN pain 3 days #9 03/04/25 tabs methocarbamol 500 mg tablet 500 mg PO TID #90 tabs Allergies Allergy/AdvReac Type Severity Reaction Status Date / Time No Known Allergies Allergy Verified 03/04/25 16:54 [facility] Disclaimer: The information contained in this section may have been updated after the patient was seen, as this information can be updated by other users. 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 Lumbar facet arthropathy Lumbar disc disease with radiculopathy Lumbar spondylosis Sciatica Surgical History Hx of cystostomy Hx of wisdom tooth extraction Hx of spinal surgery Hx of hysterectomy Hx of knee surgery Family History Other Family history non-contributory Social History Smoking Status: Current every day smoker tobacco type: cigarettes packs per day: 1 second hand exposure: No alcohol intake: current alcohol intake frequency: holidays/special occasions only counseling provided: none substance use type: denies use current occupational status: employed Travel in the last 8 weeks?: None household members: spouse housing: apartment number of children: 3 current occupational exposures/hazards: No caffeine: Yes Have you lived/traveled outside [place] in past 30 days?: No Contact w/someone who lives/traveled outside [place] past 30 days?: No Exposure to someone with infectious disease in past 14 days?: No Do you have a fever (greater than 100.4 F or 38 C)?: No Have you tested positive for COVID-19?: No Exposed to someone with COVID-19 in past 14 days?: No Do you have a sore throat?: No Do you have a cough?: No Do you have any weakness?: No Do you have any diarrhea?: No Are you experiencing any unusual bleeding?: No Do you have any muscle aches/pain?: Yes Do you have any abdominal pain?: No Are you experiencing loss of taste or smell?: No Other Medical History Have you received the Flu Vaccine for this season: No Have you received the Pneumonia Vaccine: No ROS Obtained: Yes Systems reviewed as appropriate & no additional complaints except as documented Physical Exam General General appearance: alert and in no apparent distress Head Head exam: atraumatic and normocephalic Eye Eye exam: Present normal appearance and PERRL ENT ENT exam: Present normal exam Neck Neck exam: Present normal inspection Chest Chest inspection: Present normal inspection and symmetric chest wall rise; Absent tenderness Respiratory Respiratory exam: Present normal lung sounds bilaterally Cardiovascular Cardiovascular exam: Present regular rate Abdominal Exam Abdominal exam: Present soft and normal bowel sounds; Absent tenderness Extremities Exam Extremities exam: Present normal inspection, full ROM, tenderness (Right iliac crest tenderness) and normal capillary refill; Absent edema, joint swelling or calf tenderness Back Exam Back exam: Present normal inspection and full ROM Neurological Exam Neurological exam: Present alert and oriented X3 Psychiatric Psychiatric exam: Present normal affect and normal mood Skin Skin exam: Present warm and dry Medical Decision Making Medical Records Screening: Per USPSTF and CDC recommendations, given the prevalence of disease in our region, it is our hospital?s policy to screen for HIV and viral Hepatitis for all patients aged 18 and over and those with ongoing risk factors. [place]istan Inquiry Pt receiving controlled substance: No Vital Signs: 03/04/25 16:47 03/04/25 18:01 03/04/25 18:30 Temperature 98.4 F Temperature Source Oral Pulse Rate 55 L 51 L Pulse Rate [Left] 81 Respiratory Rate 16 18 18 Blood Pressure 158/81 H 153/94 H Blood Pressure [Right Arm] 162/99 H Blood Pressure Mean 113 112 Blood Pressure Mean [Right Arm] 120 Blood Pressure Source Blood Pressure Source [Right Arm] Automatic Cuff Blood Pressure Position Blood Pressure Position [Right Arm] Sitting 02 Sat by Pulse Oximetry 99 100 100 Oxygen Delivery Method Room Air 03/04/25 18:54 Temperature 98.1 F Temperature Source Oral Pulse Rate 84 Pulse Rate [Left] Respiratory Rate 15 Blood Pressure 140/85 Blood Pressure [Right Arm] Blood Pressure Mean Blood Pressure Mean [Right Arm] Blood Pressure Source Automatic Cuff Blood Pressure Source [Right Arm] Blood Pressure Position Sitting Blood Pressure Position [Right Arm] 02 Sat by Pulse Oximetry Oxygen Delivery Method Room Air Orders (Tests/Meds): ED MEDICATIONS Discontinued Medications Generic Name Dose Route Start Last Admin Trade Name Freq PRN Reason Stop Dose Admin Ketorolac Tromethamine 30 mg 03/04/25 16:55 03/04/25 17:01 Ketorolac 30mg/Ml Vial IV 03/04/25 16:56 Not Given ONCE ONE Ketorolac Tromethamine 30 mg 03/04/25 17:01 03/04/25 17:06 Ketorolac 30mg/Ml Vial IM 03/04/25 17:02 30 mg ONCE ONE Administration Methocarbamol 500 mg 03/04/25 18:51 03/04/25 18:52 Methocarbamol 500mg Tablet PO 03/04/25 18:52 500 mg BID ONE Administration Oxycodone HCl 5 mg 03/04/25 17:51 03/04/25 18:02 Oxycodone 5mg Immediate Release Tablet PO 03/04/25 17:52 5 mg ONCE ONE Administration ORDERS Category Date Time Status XR hip RT 2-3V w/pelvis Stat Exams 03/04/25 16:51 Completed Medical Decision Narrative: In summary, patient is a 54-year-old female PMHx right knee replacement years ago, presents to the ED for sudden onset right hip pain that started this morning around 1130. She denies any injury, denies any falls. States that the pain is worse with weightbearing. Denies any recent injections or surgeries. She states that she took a Percocet prior to arrival and her pain is still an 8 out of 10. She is already in pain management for her chronic pain. Upon initial exam patient is alert, oriented and cooperative. Physical exam remarkable for right iliac crest tenderness. No overlying rash. Hx hysterectomy. Denies fever, chills, body aches, recent injections, chest pain, shortness of breath, abdominal pain, nausea, vomiting, dysuria, flank pain. Differential diagnosis include necrosis, fracture, malalignment, strain, among others. Discussed with patient we will proceed with hip and pelvis imaging, will symptomatically manage with Toradol injection. Informal read of the imaging unremarkable for any acute process. Patient stated the Toradol did not help with her pain, oxycodone administered. Upon reassessment, patient states her condition has fairly remained the same after oxycodone administration. She is ambulatory in the ED. Discussed with her that she will need to follow-up with PCP for possible PT referral. Advised that I can send Toradol tablets and Robaxin to the pharmacy, advised her to eat before taking this. Discussed stopping all other NSAIDs while taking these medications. We discussed return precautions to the ED and patient verbalized understanding. Critical Care Critical Care Time Critical Care Time: No
[2025-03-04] MEDS: KETOROLAC 30MG/ML VIAL 30 MG IM (17:06)
[2025-03-04 18:01] VITALS: BP 158/81; PULSE 55; RESP 18; O2SAT 100
[2025-03-04] MEDS: OXYCODONE 5MG IMMEDIATE RELEASE TABLET 5 MG PO (18:02)
[2025-03-04 18:30] VITALS: BP 153/94; PULSE 51; RESP 18; O2SAT 100
[2025-03-04] MEDS: METHOCARBAMOL 500MG TABLET 500 MG PO (18:52)
[2025-03-04 18:54] VITALS: BP 140/85; PULSE 84; RESP 15; TEMP 36.7; O2SAT 99
== END 2025-03-04 18:55 | disposition home or self-care (01) ==
PROVIDERS: Emergency Provider Emergency Medicine; PCP Family Medicine
DX: M25.551 Pain in right hip (principal)
CPT/HCPCS: 73502; 96372; 99283; J1885